=== PATIENT | female | born 1965 | race Caucasian/White ===

== ENCOUNTER 2020-11-10 17:47 | Inpatient (IN) | payer OTHER ==
[~2020-11-10] VITALS: Ht 167.6 cm; Wt 103.2 kg
--- NOTE | 2020-11-10 18:00 | NUR ---
PT BIB [facility]. PT TRANSFERRED FROM [facility] FOR POSSIBLE SARCOMA IN RIGHT UPPER LEG. SWELLING NOTED TO RIGHT THIGH, PT STATED THAT IT IS VEY PAINFUL. PT RECEIVED 2MG DILUADID AND 12.5MG PHENERGAN IN FLIGHT. PTS BS WAS 59 UPON [place], 1 AMP D50 GIVEN BY FLIGHT CREW.
--- NOTE | 2020-11-10 18:15 | NUR ---
PT'S FSBG 101.
[2020-11-10] MEDS ORDERED: HYDROmorphone 1 MG/ML, 1ML INJ ONE (19:23)
[2020-11-10] MEDS ORDERED: PLEASE ENTER ALLERGIES MC SCH (19:30)
[2020-11-10] MEDS ORDERED: HYDROmorphone 1 MG/ML, 1ML INJ IV ONE (19:30)
--- NOTE | 2020-11-10 19:46 | NUR ---
PT TO X RAY
[2020-11-10 19:49] LABS: INTERNATIONAL NORMALIZED RATIO 1.26 (0.93-1.1); PROTHROMBIN TIME 13.4 Seconds (9.6-11.5)
--- NOTE | 2020-11-10 20:49 | NUR ---
REPORT GIVEN TO ANISH BOLANOS.
[2020-11-10 21:14] VITALS: BP 111/73
[2020-11-10] MEDS ORDERED: LIDODERM 5% PATCH TD PRN (22:00)
[2020-11-10] MEDS: morphine SULFATE 10 MG/ML, 1ML IVPush PRN (22:40)
[2020-11-10 23:00] LABS: MEAN CORPUSCULAR HEMOGLOBIN 23.1 pg (27.0-34.8); MEAN CORPUSCULAR HGB CONC 32.1 g/dL (32.4-35.8); MEAN PLATELET VOLUME 7.2 fL (7.4-10.4); PLATELET COUNT 810 x10^3/uL (130-400); RED BLOOD COUNT 3.73 x10^6/uL (3.82-5.3)
[2020-11-10 23:11] LABS: ANION GAP 11 mmol/L (5-15); CALCIUM 7.9 mg/dL (8.5-10.1); CHLORIDE 100 mmol/L (98-107); CREATININE 0.53 mg/dL (0.55-1.02)
[2020-11-10 23:31] LABS: BAND#(MANUAL) 0.53 x10^3/uL; BANDS%(MANUAL) 5 % (0-7); EOS#(MANUAL) 0.21 x10^3/uL (0.0-0.4); EOS% (MANUAL) 2 % (1-7); HYPOCHROMIA 1+; LYMPH#(MANUAL) 1.79 x10^3/uL (1-3.4); LYMPHS% (MANUAL) 17 % (22-44); MONOS#(MANUAL) 0.74 x10^3/uL (0.3-2.7); MONOS% (MANUAL) 7 % (2-9); POLYCHROMASIA 1+; SEG#(MANUAL) 7.25 x10^3/uL (1.8-6.8); SEGS% (MANUAL) 69 % (42-75)
[2020-11-10 23:34] LABS: <PLATELET ESTIMATE> INCREASED; SMALL PLATELETS 1+; TOXIC GRAN 1+
[2020-11-10] MEDS: AMPICILLIN/SULBACTAM 3 GM in SODIUM CHLORIDE 0.9% 100 ML IV SCH (23:39)
[2020-11-10] MEDS: ACETAMINOPHEN 325 MG TABLET PO PRN (23:39)
[2020-11-10] MEDS: LACTATED RINGERS 1,000 ML IV SCH (23:40)
[2020-11-11 00:06] VITALS: BP 108/61
[2020-11-11] MEDS: TEMAZEPAM 15 MG CAPSULE PO PRN (00:21)
[2020-11-11] MEDS: morphine SULFATE 10 MG/ML, 1ML IVPush PRN ×6 (01:50→22:05)
[2020-11-11] MEDS: ONDANSETRON 2MG/ML, 2ML IVPush PRN (01:50)
[2020-11-11] MEDS ORDERED: GLYB5TAB3 PO (01:56)
[2020-11-11] MEDS ORDERED: ALLO300T PO (02:33)
[2020-11-11] MEDS ORDERED: AMOX1TAB64 PO (02:34)
[2020-11-11] MEDS ORDERED: IBUP-1223 PO (02:36)
[2020-11-11] MEDS ORDERED: BISO10TA PO (02:36)
[2020-11-11] MEDS ORDERED: LISI40TA9 PO (02:41)
[2020-11-11] MEDS ORDERED: LEVO200C2 PO (02:41)
[2020-11-11] MEDS ORDERED: METF10007 PO (02:41)
[2020-11-11] MEDS ORDERED: LOVA40TA2 PO (02:41)
[2020-11-11] MEDS ORDERED: OXYC10TA72 PO (02:41)
[2020-11-11] MEDS ORDERED: ONDA4TAB7 PO (02:41)
[2020-11-11] MEDS ORDERED: DEXTROSE 50%, 50ML SYRINGE IVPush PRN (05:00)
[2020-11-11] MEDS ORDERED: DEXTROSE 4 GM TAB.CHEW PO PRN (05:00)
[2020-11-11] MEDS ORDERED: GLUCAGON 1 MG IM PRN (05:00)
[2020-11-11] MEDS: AMPICILLIN/SULBACTAM 3 GM in SODIUM CHLORIDE 0.9% 100 ML IV SCH ×3 (05:01→17:56)
[2020-11-11 05:23] LABS: MEAN CORPUSCULAR HEMOGLOBIN 23.2 pg (27.0-34.8); MEAN CORPUSCULAR HGB CONC 32.2 g/dL (32.4-35.8); MEAN PLATELET VOLUME 7.2 fL (7.4-10.4); PLATELET COUNT 786 x10^3/uL (130-400); RED CELL DISTRIBUTION WIDTH 18.8 % (9.6-15.2)
[2020-11-11 05:35] LABS: ANION GAP 8 mmol/L (5-15); CALCIUM 7.8 mg/dL (8.5-10.1); CHLORIDE 103 mmol/L (98-107)
[2020-11-11 05:46] LABS: % IRON SATURATION 7 % (20-55); CREATININE 0.53 mg/dL (0.55-1.02); IRON LEVEL 12 mcg/dL (50-170); TOTAL IRON BINDING CAPACITY 172 mcg/dL (250-450)
[2020-11-11 06:02] LABS: BAND#(MANUAL) 0.38 x10^3/uL; BANDS%(MANUAL) 4 % (0-7); EOS#(MANUAL) 0.19 x10^3/uL (0.0-0.4); EOS% (MANUAL) 2 % (1-7); LYMPHS% (MANUAL) 21 % (22-44); METAMYELOCYTES# (MANUAL) 0.29 x10^3/uL (0-0); METAMYELOCYTES% (MANUAL) 3 % (0-1); MONOS#(MANUAL) 0.86 x10^3/uL (0.3-2.7); MONOS% (MANUAL) 9 % (2-9); SEGS% (MANUAL) 61 % (42-75)
[2020-11-11 06:04] LABS: POLYCHROMASIA 1+
[2020-11-11 06:05] LABS: ANISOCYTOSIS 1+
[2020-11-11 06:06] LABS: <PLATELET ESTIMATE> INCREASED; <PLT MORPHOLOGY> NORMAL PLT MORPH; HYPOCHROMIA 2+; MICROCYTOSIS 1+
[2020-11-11 06:07] LABS: TOXIC GRAN 1+
[2020-11-11 06:08] LABS: TARGET CELLS 1+
[2020-11-11 06:18] LABS: PMNS WITH VACUOLES 1+
[2020-11-11] MEDS: SODIUM CHLORIDE FLUSH 10ML SYR IVF SCH ×2 (07:29→20:39)
[2020-11-11] MEDS: LACTATED RINGERS 1,000 ML IV SCH (08:10)
[2020-11-11] MEDS ORDERED: POTASSIUM CHLORIDE 40 MEQ in LACTATED RINGERS 1,000 ML IV SCH (09:00)
[2020-11-11 09:05] VITALS: BP 123/79
[2020-11-11 09:29] VITALS: BP 128/80
[2020-11-11] MEDS ORDERED: CHLORHEXIDINE 15 ML UDC PO ONE (10:30)
[2020-11-11] MEDS ORDERED: FENTANYL PF 250 MCG/5ML ONE (10:31)
[2020-11-11] MEDS ORDERED: hydrALAzine 20 MG/ML, 1ML IV PRN (12:00)
[2020-11-11] MEDS ORDERED: METHOCARBAMOL 1,000 MG in DEXTROSE 5% 100 ML IV PRN (12:00)
[2020-11-11] MEDS ORDERED: LABETALOL 5MG/ML, 20ML IV PRN (12:00)
[2020-11-11] MEDS ORDERED: EPHEDRINE 50 MG/ML, 1ML IVPush PRN (12:00)
[2020-11-11] MEDS ORDERED: LORazepam 2 MG/ML, 1ML IVPush PRN (12:00)
[2020-11-11] MEDS ORDERED: ACETAMINOPHEN 325 MG TABLET PO PRN (12:00)
[2020-11-11] MEDS ORDERED: ONDANSETRON 2MG/ML, 2ML IVPush PRN (12:00)
[2020-11-11] MEDS ORDERED: PROMETHAZINE 25 MG/ML, 1ML IVPush PRN (12:00)
[2020-11-11] MEDS ORDERED: MEPERIDINE/PF 25MG/0.5ML IVPush PRN (12:00)
[2020-11-11] MEDS ORDERED: HYDROmorphone 1 MG/ML, 1ML INJ IVPush PRN (12:00)
[2020-11-11] MEDS ORDERED: OXYcodone 5 MG/5 ML ORAL.SOL UDC PO PRN (12:00)
[2020-11-11] MEDS ORDERED: ONDANSETRON 2MG/ML, 2ML ONE (12:15)
[2020-11-11] MEDS ORDERED: CEFAZOLIN 1,000 MG ONE (12:15)
[2020-11-11] MEDS ORDERED: PROPOFOL 10 MG/ML, 20ML ONE (12:15)
[2020-11-11] MEDS ORDERED: MIDAZOLAM 1 MG/ML, 2ML ONE (12:44)
[2020-11-11] MEDS ORDERED: OXYcodone 5 MG/5 ML ORAL.SOL UDC ONE (13:26)
[2020-11-11] MEDS ORDERED: FENTANYL PF 100 MCG/2ML ONE ×3 (13:26→13:57)
[2020-11-11] MEDS: FENTANYL PF 100 MCG/2ML IV PRN ×5 (13:28→13:59)
[2020-11-11] MEDS ORDERED: HYDROmorphone 1 MG/ML, 1ML INJ ONE (13:58)
[2020-11-11] MEDS ORDERED: VANCOMYCIN PER PHARMACY MC PRN (14:00)
[2020-11-11] MEDS ORDERED: PHARMACOKINETIC MONITORING MC PRN (14:30)
[2020-11-11] MEDS ORDERED: VANCOMYCIN 2,500 MG in SODIUM CHLORIDE 0.9% 500 ML IV ONE (15:00)
[2020-11-11] MEDS: HYDROcodone/APAP 5/325 TABLET PO PRN (17:06)
[2020-11-11 18:35] VITALS: BP 100/64
[2020-11-12] VITALS (13 sets, daily range): BP systolic 99–145; BP diastolic 57–80
[2020-11-12] MEDS: AMPICILLIN/SULBACTAM 3 GM in SODIUM CHLORIDE 0.9% 100 ML IV SCH ×5 (00:07→20:23)
[2020-11-12] MEDS: morphine SULFATE 10 MG/ML, 1ML IVPush PRN ×6 (01:21→21:13)
[2020-11-12] MEDS: VANCOMYCIN 2,000 MG in SODIUM CHLORIDE 0.9% 500 ML IV SCH ×2 (03:20→16:46)
[2020-11-12 05:41] LABS: ANION GAP 8 mmol/L (5-15); CALCIUM 7.7 mg/dL (8.5-10.1); CHLORIDE 103 mmol/L (98-107); CREATININE 0.49 mg/dL (0.55-1.02)
[2020-11-12 05:42] LABS: MEAN CORPUSCULAR HEMOGLOBIN 23.6 pg (27.0-34.8); MEAN CORPUSCULAR HGB CONC 32.5 g/dL (32.4-35.8); MEAN PLATELET VOLUME 7.5 fL (7.4-10.4); PLATELET COUNT 629 x10^3/uL (130-400); RED BLOOD COUNT 2.71 x10^6/uL (3.82-5.3); RED CELL DISTRIBUTION WIDTH 18.5 % (9.6-15.2)
[2020-11-12 06:16] LABS: ANISOCYTOSIS 1+; BAND#(MANUAL) 0.55 x10^3/uL; BANDS%(MANUAL) 5 % (0-7); EOS#(MANUAL) 0.22 x10^3/uL (0.0-0.4); EOS% (MANUAL) 2 % (1-7); HYPOCHROMIA 1+; LYMPH#(MANUAL) 1.53 x10^3/uL (1-3.4); LYMPHS% (MANUAL) 14 % (22-44); METAMYELOCYTES# (MANUAL) 0.11 x10^3/uL (0-0); METAMYELOCYTES% (MANUAL) 1 % (0-1); MICROCYTOSIS 1+; MONOS#(MANUAL) 0.55 x10^3/uL (0.3-2.7); MONOS% (MANUAL) 5 % (2-9); MYELOCYTES# (MANUAL) 0.33 x10^3/uL (0-0); MYELOCYTES% (MANUAL) 3 % (0-0); POLYCHROMASIA 1+; SEG#(MANUAL) 7.63 x10^3/uL (1.8-6.8); SEGS% (MANUAL) 70 % (42-75)
[2020-11-12 06:17] LABS: <PLATELET ESTIMATE> INCREASED; <PLT MORPHOLOGY> NORMAL PLT MORPH; OVALOCYTES 1+; PMNS WITH VACUOLES 1+; TARGET CELLS 1+; TOXIC GRAN 1+
[2020-11-12 06:18] LABS: SMUDGE CELLS 1+
[2020-11-12] MEDS: HYDROcodone/APAP 5/325 TABLET PO PRN ×3 (06:25→19:36)
[2020-11-12] MEDS: SODIUM CHLORIDE FLUSH 10ML SYR IVF SCH ×2 (07:11→21:08)
[2020-11-12] MEDS ORDERED: DOCUSATE 100 MG CAPSULE ONE (16:59)
[2020-11-12] MEDS ORDERED: DOCUSATE 50 MG/5 ML, 10ML UDC PO PRN (17:00)
[2020-11-12] MEDS ORDERED: POLYETHYLENE GLYCOL 17 GM PACKET PO PRN (17:00)
[2020-11-12] MEDS: DOCUSATE 100 MG CAPSULE PO PRN (17:01)
[2020-11-12] MEDS: MAGNESIUM SULFATE PMX 4GM/100M 100 ML IVPB ONE ×2 (20:15→21:08)
[2020-11-12] MEDS: INSULIN LISPRO 100 UNITS/ML, PEN SQ-INSULIN SCH (21:58)
[2020-11-12] MEDS: TEMAZEPAM 15 MG CAPSULE PO PRN (22:02)
[2020-11-13] MEDS: morphine SULFATE 10 MG/ML, 1ML IVPush PRN ×3 (00:59→16:58)
[2020-11-13] MEDS: AMPICILLIN/SULBACTAM 3 GM in SODIUM CHLORIDE 0.9% 100 ML IV SCH ×4 (01:55→22:13)
[2020-11-13 01:59] VITALS: BP 119/79
[2020-11-13] MEDS: VANCOMYCIN 2,000 MG in SODIUM CHLORIDE 0.9% 500 ML IV SCH (03:33)
[2020-11-13 04:46] LABS: MEAN CORPUSCULAR HEMOGLOBIN 24.5 pg (27.0-34.8); MEAN CORPUSCULAR HGB CONC 32.5 g/dL (32.4-35.8); MEAN PLATELET VOLUME 7.3 fL (7.4-10.4); PLATELET COUNT 644 x10^3/uL (130-400); RED BLOOD COUNT 3.48 x10^6/uL (3.82-5.3); RED CELL DISTRIBUTION WIDTH 19.8 % (9.6-15.2)
[2020-11-13 04:57] LABS: ANION GAP 8 mmol/L (5-15); CALCIUM 7.8 mg/dL (8.5-10.1); CHLORIDE 101 mmol/L (98-107); CREATININE 0.36 mg/dL (0.55-1.02)
[2020-11-13] MEDS: LEVOTHYROXINE 200 MCG TABLET PO SCH (05:21)
[2020-11-13 05:42] LABS: ANISOCYTOSIS 1+; BAND#(MANUAL) 0.77 x10^3/uL; BANDS%(MANUAL) 7 % (0-7); EOS#(MANUAL) 0.22 x10^3/uL (0.0-0.4); EOS% (MANUAL) 2 % (1-7); HYPOCHROMIA 1+; LYMPH#(MANUAL) 1.65 x10^3/uL (1-3.4); LYMPHS% (MANUAL) 15 % (22-44); METAMYELOCYTES# (MANUAL) 0.77 x10^3/uL (0-0); METAMYELOCYTES% (MANUAL) 7 % (0-1); MICROCYTOSIS 1+; MONOS#(MANUAL) 0.66 x10^3/uL (0.3-2.7); MONOS% (MANUAL) 6 % (2-9); MYELOCYTES# (MANUAL) 0.33 x10^3/uL (0-0); MYELOCYTES% (MANUAL) 3 % (0-0); POLYCHROMASIA 1+; SEGS% (MANUAL) 60 % (42-75)
[2020-11-13 05:43] LABS: <PLATELET ESTIMATE> INCREASED; <PLT MORPHOLOGY> NORMAL PLT MORPH; TOXIC GRAN 1+
[2020-11-13 06:39] VITALS: BP 122/79
[2020-11-13] MEDS: INSULIN LISPRO 100 UNITS/ML, PEN SQ-INSULIN SCH ×4 (07:00→21:09)
[2020-11-13] MEDS ORDERED: MIDAZOLAM 1 MG/ML, 2ML ONE (07:15)
[2020-11-13] MEDS ORDERED: FENTANYL PF 100 MCG/2ML ONE ×2 (07:15→08:02)
[2020-11-13] MEDS: SODIUM CHLORIDE FLUSH 10ML SYR IVF SCH ×2 (07:16→19:53)
[2020-11-13] MEDS ORDERED: PROPOFOL 10 MG/ML, 20ML ONE (07:18)
[2020-11-13] MEDS ORDERED: DEXAMETHASONE 4 MG/ML, 1ML ONE (07:18)
[2020-11-13] MEDS ORDERED: SUCCINYLCHOLINE 20 MG/ML, 10ML ONE (07:18)
[2020-11-13] MEDS ORDERED: ONDANSETRON 2MG/ML, 2ML ONE (07:18)
[2020-11-13] MEDS ORDERED: PROMETHAZINE 25 MG/ML, 1ML IVPush PRN (07:30)
[2020-11-13] MEDS ORDERED: ACETAMINOPHEN 325 MG TABLET PO PRN (07:30)
[2020-11-13] MEDS ORDERED: LABETALOL 5MG/ML, 20ML IV PRN (07:30)
[2020-11-13] MEDS ORDERED: FENTANYL PF 100 MCG/2ML IV PRN (07:30)
[2020-11-13] MEDS ORDERED: EPHEDRINE 50 MG/ML, 1ML IVPush PRN (07:30)
[2020-11-13] MEDS ORDERED: ONDANSETRON 2MG/ML, 2ML IVPush PRN (07:30)
[2020-11-13] MEDS ORDERED: hydrALAzine 20 MG/ML, 1ML IV PRN (07:30)
[2020-11-13] MEDS ORDERED: HYDROmorphone 1 MG/ML, 1ML INJ IVPush PRN (07:30)
[2020-11-13] MEDS ORDERED: OXYcodone 5 MG/5 ML ORAL.SOL UDC PO PRN (07:30)
[2020-11-13] MEDS ORDERED: KETOROLAC 30 MG/1 ML ONE (07:30)
[2020-11-13] MEDS ORDERED: HYDROmorphone 1 MG/ML, 1ML INJ ONE (07:40)
[2020-11-13] MEDS ORDERED: LIDOCAINE-MPF 2% ,5ML ONE (07:43)
[2020-11-13] MEDS ORDERED: OXYcodone 5 MG/5 ML ORAL.SOL UDC ONE (08:02)
[2020-11-13] MEDS ORDERED: SODIUM PHOSPHATE 20 MMOL in SODIUM CHLORIDE 0.9% 500 ML IV ONE (10:00)
[2020-11-13] MEDS ORDERED: MAGNESIUM SULFATE PMX 2GM/50ML 50 ML IV ONE (10:00)
[2020-11-13 12:05] VITALS: BP 128/91
[2020-11-13] MEDS: HYDROcodone/APAP 5/325 TABLET PO PRN ×2 (13:32→19:40)
[2020-11-13 19:38] VITALS: BP 120/75
[2020-11-13] MEDS: TEMAZEPAM 15 MG CAPSULE PO PRN (22:13)
[2020-11-14 00:08] VITALS: BP 121/72
[2020-11-14] MEDS: morphine SULFATE 10 MG/ML, 1ML IVPush PRN ×5 (00:18→20:40)
[2020-11-14] MEDS: AMPICILLIN/SULBACTAM 3 GM in SODIUM CHLORIDE 0.9% 100 ML IV SCH ×4 (03:51→21:29)
[2020-11-14 05:15] LABS: MEAN CORPUSCULAR HEMOGLOBIN 24.8 pg (27.0-34.8); MEAN CORPUSCULAR HGB CONC 32.9 g/dL (32.4-35.8); MEAN PLATELET VOLUME 7.9 fL (7.4-10.4); PLATELET COUNT 705 x10^3/uL (130-400); RED BLOOD COUNT 3.19 x10^6/uL (3.82-5.3); RED CELL DISTRIBUTION WIDTH 20.2 % (9.6-15.2)
[2020-11-14 05:27] LABS: CHLORIDE 100 mmol/L (98-107)
[2020-11-14 05:32] LABS: ANION GAP 8 mmol/L (5-15); CALCIUM 7.9 mg/dL (8.5-10.1); CREATININE 0.47 mg/dL (0.55-1.02)
[2020-11-14 05:50] LABS: ANISOCYTOSIS 1+; BAND#(MANUAL) 0.95 x10^3/uL; BANDS%(MANUAL) 9 % (0-7); HYPOCHROMIA 1+; LYMPHS% (MANUAL) 16 % (22-44); METAMYELOCYTES# (MANUAL) 0.32 x10^3/uL (0-0); METAMYELOCYTES% (MANUAL) 3 % (0-1); MICROCYTOSIS 1+; MONOS#(MANUAL) 0.74 x10^3/uL (0.3-2.7); MONOS% (MANUAL) 7 % (2-9); MYELOCYTES# (MANUAL) 0.11 x10^3/uL (0-0); MYELOCYTES% (MANUAL) 1 % (0-0); SEG#(MANUAL) 6.78 x10^3/uL (1.8-6.8); SEGS% (MANUAL) 64 % (42-75); TARGET CELLS 1+
[2020-11-14 05:51] LABS: <PLATELET ESTIMATE> INCREASED; <PLT MORPHOLOGY> NORMAL PLT MORPH; POLYCHROMASIA 1+; TOXIC GRAN 1+
[2020-11-14] MEDS: LEVOTHYROXINE 200 MCG TABLET PO SCH (05:55)
[2020-11-14] MEDS ORDERED: VANCOMYCIN 2,000 MG in SODIUM CHLORIDE 0.9% 500 ML IV SCH (06:00)
[2020-11-14 07:09] VITALS: BP 117/71
[2020-11-14] MEDS: HYDROcodone/APAP 5/325 TABLET PO PRN ×2 (07:47→15:32)
[2020-11-14] MEDS: SODIUM CHLORIDE FLUSH 10ML SYR IVF SCH ×2 (07:48→21:29)
[2020-11-14] MEDS: INSULIN LISPRO 100 UNITS/ML, PEN SQ-INSULIN SCH ×4 (07:48→21:29)
[2020-11-14 13:10] VITALS: BP 113/73
[2020-11-14] MEDS ORDERED: MORPHINE SULFATE 4 MG/ML, 1ML ONE (14:01)
[2020-11-14 19:20] VITALS: BP 117/67
[2020-11-14] MEDS: TEMAZEPAM 15 MG CAPSULE PO PRN (21:39)
[2020-11-15 00:48] VITALS: BP 132/81
[2020-11-15] MEDS: HYDROcodone/APAP 5/325 TABLET PO PRN ×3 (00:56→18:40)
[2020-11-15] MEDS: AMPICILLIN/SULBACTAM 3 GM in SODIUM CHLORIDE 0.9% 100 ML IV SCH ×4 (04:08→23:33)
[2020-11-15] MEDS: LEVOTHYROXINE 200 MCG TABLET PO SCH (05:09)
[2020-11-15 05:38] LABS: MEAN CORPUSCULAR HEMOGLOBIN 24.5 pg (27.0-34.8); MEAN CORPUSCULAR HGB CONC 32.2 g/dL (32.4-35.8); MEAN PLATELET VOLUME 7.4 fL (7.4-10.4); PLATELET COUNT 956 x10^3/uL (130-400); RED BLOOD COUNT 3.33 x10^6/uL (3.82-5.3); RED CELL DISTRIBUTION WIDTH 20.6 % (9.6-15.2)
[2020-11-15 05:47] LABS: CHLORIDE 104 mmol/L (98-107)
[2020-11-15 06:02] LABS: ALANINE AMINOTRANSFERASE 29 U/L (12-78); ALBUMIN 1.5 g/dL (3.4-5.0); ALKALINE PHOSPHATASE 136 U/L (45-117); ANION GAP 7 mmol/L (5-15); BILIRUBIN,TOTAL 0.2 mg/dL (0.2-1.0); CALCIUM 7.9 mg/dL (8.5-10.1); CREATININE 0.42 mg/dL (0.55-1.02); TOTAL PROTEIN 5.3 g/dL (6.4-8.2)
[2020-11-15 06:10] LABS: BAND#(MANUAL) 1.28 x10^3/uL; BANDS%(MANUAL) 8 % (0-7); EOS#(MANUAL) 0.48 x10^3/uL (0.0-0.4); EOS% (MANUAL) 3 % (1-7); LYMPHS% (MANUAL) 20 % (22-44); METAMYELOCYTES% (MANUAL) 10 % (0-1); MONOS#(MANUAL) 0.96 x10^3/uL (0.3-2.7); MONOS% (MANUAL) 6 % (2-9); MYELOCYTES% (MANUAL) 5 % (0-0); SEG#(MANUAL) 7.68 x10^3/uL (1.8-6.8); SEGS% (MANUAL) 48 % (42-75)
[2020-11-15 06:11] LABS: ANISOCYTOSIS 1+; MICROCYTOSIS 1+
[2020-11-15 06:12] LABS: <PLATELET ESTIMATE> INCREASED; <PLT MORPHOLOGY> NORMAL PLT MORPH; HYPOCHROMIA 1+; POLYCHROMASIA 1+; TARGET CELLS 1+
[2020-11-15 06:17] LABS: TOXIC GRAN 1+
[2020-11-15 06:54] VITALS: BP 134/78
[2020-11-15] MEDS: INSULIN LISPRO 100 UNITS/ML, PEN SQ-INSULIN SCH ×4 (07:00→20:14)
[2020-11-15] MEDS: SODIUM CHLORIDE FLUSH 10ML SYR IVF SCH ×2 (07:12→20:14)
[2020-11-15] MEDS: morphine SULFATE 10 MG/ML, 1ML IVPush PRN ×5 (07:57→23:43)
[2020-11-15 13:36] VITALS: BP 134/80
[2020-11-15 19:05] VITALS: BP 132/85
[2020-11-15 21:15] VITALS: BP 128/79
[2020-11-15 23:40] VITALS: BP 131/73
[2020-11-16 00:39] VITALS: BP 133/83
[2020-11-16] MEDS: HYDROcodone/APAP 5/325 TABLET PO PRN ×2 (00:58→18:34)
[2020-11-16] MEDS: morphine SULFATE 10 MG/ML, 1ML IVPush PRN ×4 (02:42→21:27)
[2020-11-16] MEDS: AMPICILLIN/SULBACTAM 3 GM in SODIUM CHLORIDE 0.9% 100 ML IV SCH ×3 (05:21→18:21)
[2020-11-16] MEDS: LEVOTHYROXINE 200 MCG TABLET PO SCH (05:47)
[2020-11-16 06:10] VITALS: BP 139/82
[2020-11-16] MEDS ORDERED: MIDAZOLAM 1 MG/ML, 2ML ONE (06:58)
[2020-11-16] MEDS ORDERED: FENTANYL PF 250 MCG/5ML ONE ×2 (06:59→08:05)
[2020-11-16] MEDS: INSULIN LISPRO 100 UNITS/ML, PEN SQ-INSULIN SCH ×4 (07:00→22:20)
[2020-11-16] MEDS ORDERED: CHLORHEXIDINE 15 ML UDC PO ONE (07:00)
[2020-11-16] MEDS ORDERED: VANCOMYCIN 1,000 MG ONE (07:22)
[2020-11-16] MEDS ORDERED: ACETAMINOPHEN 325 MG TABLET PO PRN (07:30)
[2020-11-16] MEDS ORDERED: hydrALAzine 20 MG/ML, 1ML IV PRN (07:30)
[2020-11-16] MEDS ORDERED: HYDROmorphone 1 MG/ML, 1ML INJ IVPush PRN (07:30)
[2020-11-16] MEDS ORDERED: LABETALOL 5MG/ML, 20ML IV PRN (07:30)
[2020-11-16] MEDS ORDERED: PROMETHAZINE 25 MG/ML, 1ML IVPush PRN (07:30)
[2020-11-16] MEDS ORDERED: LORazepam 2 MG/ML, 1ML IVPush PRN (07:30)
[2020-11-16] MEDS ORDERED: ONDANSETRON 2MG/ML, 2ML IVPush PRN (07:30)
[2020-11-16] MEDS ORDERED: OXYcodone 5 MG/5 ML ORAL.SOL UDC PO PRN (07:30)
[2020-11-16] MEDS ORDERED: EPHEDRINE 50 MG/ML, 1ML IVPush PRN (07:30)
[2020-11-16] MEDS ORDERED: METHOCARBAMOL 1,000 MG in DEXTROSE 5% 100 ML IV PRN (07:30)
[2020-11-16] MEDS ORDERED: MEPERIDINE/PF 25MG/0.5ML IVPush PRN (07:30)
[2020-11-16] MEDS ORDERED: MEPERIDINE/PF 50 MG/ML ONE (07:58)
[2020-11-16] MEDS ORDERED: VANCOMYCIN 1,000 MG IM ONE (08:08)
[2020-11-16] MEDS: SODIUM CHLORIDE FLUSH 10ML SYR IVF SCH ×2 (08:33→22:21)
[2020-11-16] MEDS ORDERED: FENTANYL PF 100 MCG/2ML ONE ×2 (08:41→08:58)
[2020-11-16] MEDS: FENTANYL PF 100 MCG/2ML IV PRN ×4 (08:42→09:08)
[2020-11-16] MEDS ORDERED: OXYcodone 5 MG/5 ML ORAL.SOL UDC ONE (08:53)
[2020-11-16 09:45] VITALS: BP 120/79
[2020-11-16 12:59] VITALS: BP 122/78
[2020-11-16 19:07] VITALS: BP 111/69
[2020-11-16] MEDS ORDERED: INSULIN GLARGINE 100 UNITS/ML, PEN SQ-INSULIN SCH (21:00)
[2020-11-16] MEDS: TEMAZEPAM 15 MG CAPSULE PO PRN (22:20)
[2020-11-17] MEDS: AMPICILLIN/SULBACTAM 3 GM in SODIUM CHLORIDE 0.9% 100 ML IV SCH ×4 (00:13→17:47)
[2020-11-17 00:54] VITALS: BP 107/62
[2020-11-17 05:16] LABS: MEAN CORPUSCULAR HEMOGLOBIN 24.3 pg (27.0-34.8); MEAN CORPUSCULAR HGB CONC 31.6 g/dL (32.4-35.8); MEAN PLATELET VOLUME 7.4 fL (7.4-10.4); PLATELET COUNT 928 x10^3/uL (130-400); RED BLOOD COUNT 3.23 x10^6/uL (3.82-5.3); RED CELL DISTRIBUTION WIDTH 22.1 % (9.6-15.2)
[2020-11-17 05:24] LABS: ALBUMIN 1.5 g/dL (3.4-5.0); ANION GAP 7 mmol/L (5-15); CALCIUM 7.6 mg/dL (8.5-10.1); CHLORIDE 101 mmol/L (98-107)
[2020-11-17 05:38] LABS: ALANINE AMINOTRANSFERASE 14 U/L (12-78); ALKALINE PHOSPHATASE 99 U/L (45-117); BILIRUBIN,TOTAL 0.2 mg/dL (0.2-1.0); CREATININE 0.49 mg/dL (0.55-1.02); TOTAL PROTEIN 4.9 g/dL (6.4-8.2)
[2020-11-17 05:47] LABS: HCT (SEDRATE) 24.9 % (34.6-47.8)
[2020-11-17] MEDS: LEVOTHYROXINE 200 MCG TABLET PO SCH (05:54)
[2020-11-17] MEDS: morphine SULFATE 10 MG/ML, 1ML IVPush PRN ×2 (05:54→14:35)
[2020-11-17 06:02] LABS: ANISOCYTOSIS 1+; BANDS%(MANUAL) 4 % (0-7); EOS% (MANUAL) 2 % (1-7); HYPOCHROMIA 1+; LYMPH#(MANUAL) 2.85 x10^3/uL (1-3.4); LYMPHS% (MANUAL) 19 % (22-44); METAMYELOCYTES% (MANUAL) 2 % (0-1); MICROCYTOSIS 1+; MONOS#(MANUAL) 0.45 x10^3/uL (0.3-2.7); MONOS% (MANUAL) 3 % (2-9); POLYCHROMASIA 1+; SEGS% (MANUAL) 70 % (42-75); TOXIC GRAN 1+
[2020-11-17 06:03] LABS: TARGET CELLS 1+
[2020-11-17 06:04] LABS: <PLATELET ESTIMATE> INCREASED; <PLT MORPHOLOGY> NORMAL PLT MORPH
[2020-11-17 06:30] VITALS: BP 139/81
[2020-11-17] MEDS: INSULIN LISPRO 100 UNITS/ML, PEN SQ-INSULIN SCH ×4 (07:00→20:35)
[2020-11-17] MEDS ORDERED: POTASSIUM CHLORIDE 40 MEQ in SODIUM CHLORIDE 0.9% 500 ML IV ONE (07:30)
[2020-11-17] MEDS ORDERED: MAGNESIUM SULFATE PMX 4GM/100M 100 ML IVPB ONE (07:30)
[2020-11-17] MEDS: HYDROcodone/APAP 5/325 TABLET PO PRN (08:52)
[2020-11-17] MEDS: SODIUM CHLORIDE FLUSH 10ML SYR IVF SCH ×2 (09:08→20:28)
[2020-11-17] MEDS ORDERED: POTASSIUM CHLORIDE 20 MEQ TAB.ER.PRT PO ONE ×2 (10:00→13:00)
[2020-11-17 13:10] VITALS: BP 126/77
[2020-11-17 19:35] VITALS: BP 129/72
[2020-11-17] MEDS: OXYcodone IR 5MG TABLET PO PRN (20:28)
[2020-11-17] MEDS ORDERED: INSULIN GLARGINE 100 UNITS/ML, PEN SQ-INSULIN SCH (21:00)
[2020-11-17] MEDS: TEMAZEPAM 15 MG CAPSULE PO PRN (22:07)
[2020-11-18] MEDS: AMPICILLIN/SULBACTAM 3 GM in SODIUM CHLORIDE 0.9% 100 ML IV SCH ×4 (00:26→18:05)
[2020-11-18] MEDS: morphine SULFATE 10 MG/ML, 1ML IVPush PRN ×3 (00:26→12:50)
[2020-11-18 00:31] VITALS: BP 125/78
[2020-11-18 05:10] LABS: MEAN CORPUSCULAR HEMOGLOBIN 24.8 pg (27.0-34.8); MEAN CORPUSCULAR HGB CONC 32.1 g/dL (32.4-35.8); MEAN PLATELET VOLUME 7.2 fL (7.4-10.4); PLATELET COUNT 1000 x10^3/uL (130-400); RED BLOOD COUNT 3.28 x10^6/uL (3.82-5.3); RED CELL DISTRIBUTION WIDTH 22.3 % (9.6-15.2)
[2020-11-18] MEDS: LEVOTHYROXINE 200 MCG TABLET PO SCH (05:18)
[2020-11-18 05:22] LABS: CHLORIDE 103 mmol/L (98-107)
[2020-11-18] MEDS: ONDANSETRON 2MG/ML, 2ML IVPush PRN (05:34)
[2020-11-18 05:36] LABS: ANION GAP 5 mmol/L (5-15); CALCIUM 7.8 mg/dL (8.5-10.1)
[2020-11-18 05:41] LABS: ANISOCYTOSIS 1+; BAND#(MANUAL) 0.29 x10^3/uL; BANDS%(MANUAL) 2 % (0-7); EOS#(MANUAL) 0.29 x10^3/uL (0.0-0.4); EOS% (MANUAL) 2 % (1-7); HYPOCHROMIA 1+; LYMPH#(MANUAL) 3.72 x10^3/uL (1-3.4); LYMPHS% (MANUAL) 26 % (22-44); METAMYELOCYTES# (MANUAL) 0.14 x10^3/uL (0-0); METAMYELOCYTES% (MANUAL) 1 % (0-1); MICROCYTOSIS 1+; MONOS#(MANUAL) 0.57 x10^3/uL (0.3-2.7); MONOS% (MANUAL) 4 % (2-9); MYELOCYTES# (MANUAL) 0.29 x10^3/uL (0-0); MYELOCYTES% (MANUAL) 2 % (0-0); POLYCHROMASIA 1+; SEG#(MANUAL) 9.01 x10^3/uL (1.8-6.8); SEGS% (MANUAL) 63 % (42-75); TARGET CELLS 1+
[2020-11-18 05:42] LABS: <PLATELET ESTIMATE> INCREASED; <PLT MORPHOLOGY> NORMAL PLT MORPH
[2020-11-18 07:33] VITALS: BP 129/77
[2020-11-18] MEDS: SODIUM CHLORIDE FLUSH 10ML SYR IVF SCH ×2 (07:44→21:06)
[2020-11-18] MEDS: INSULIN LISPRO 100 UNITS/ML, PEN SQ-INSULIN SCH ×4 (07:44→21:07)
[2020-11-18] MEDS: OXYcodone IR 5MG TABLET PO PRN ×3 (09:34→18:05)
[2020-11-18 13:44] VITALS: BP 130/77
[2020-11-18 19:23] VITALS: BP 118/79
[2020-11-18] MEDS ORDERED: INSULIN GLARGINE 100 UNITS/ML, PEN SQ-INSULIN SCH (21:00)
[2020-11-18] MEDS: TEMAZEPAM 15 MG CAPSULE PO PRN (22:32)
[2020-11-19] MEDS: AMPICILLIN/SULBACTAM 3 GM in SODIUM CHLORIDE 0.9% 100 ML IV SCH ×4 (00:06→19:15)
[2020-11-19] MEDS: OXYcodone IR 5MG TABLET PO PRN ×5 (00:07→22:41)
[2020-11-19 00:15] VITALS: BP 115/70
[2020-11-19 05:12] LABS: BASOPHILS % (AUTO) 1 % (0-1); EOSINOPHILS % (AUTO) 4 % (1-7); LYMPHOCYTES % (AUTO) 27 % (22-44); MEAN CORPUSCULAR HEMOGLOBIN 25.2 pg (27.0-34.8); MEAN CORPUSCULAR HGB CONC 32.2 g/dL (32.4-35.8); MEAN PLATELET VOLUME 7.2 fL (7.4-10.4); MONOCYTES % (AUTO) 9 % (2-9); NEUTROPHILS % (AUTO) 60 % (42-75); PLATELET COUNT 945 x10^3/uL (130-400); RED BLOOD COUNT 3.05 x10^6/uL (3.82-5.3); RED CELL DISTRIBUTION WIDTH 22.8 % (9.6-15.2)
[2020-11-19 05:24] LABS: ANION GAP 7 mmol/L (5-15); CALCIUM 8.3 mg/dL (8.5-10.1); CHLORIDE 103 mmol/L (98-107); CREATININE 0.52 mg/dL (0.55-1.02)
[2020-11-19] MEDS: LEVOTHYROXINE 200 MCG TABLET PO SCH (05:53)
[2020-11-19 07:08] VITALS: BP 122/80
[2020-11-19] MEDS: INSULIN LISPRO 100 UNITS/ML, PEN SQ-INSULIN SCH ×4 (07:34→20:44)
[2020-11-19] MEDS: SODIUM CHLORIDE FLUSH 10ML SYR IVF SCH ×2 (09:00→20:43)
[2020-11-19] MEDS: INSULIN GLARGINE 100 UNITS/ML, PEN SQ-INSULIN SCH (09:01)
[2020-11-19] MEDS: ONDANSETRON 2MG/ML, 2ML IVPush PRN (11:36)
[2020-11-19] MEDS: morphine SULFATE 10 MG/ML, 1ML IVPush PRN ×2 (12:29→20:32)
[2020-11-19 12:50] VITALS: BP 112/69
[2020-11-19 18:57] VITALS: BP 125/79
[2020-11-19] MEDS ORDERED: INSULIN GLARGINE 100 UNITS/ML, PEN SQ-INSULIN SCH (21:00)
[2020-11-20 00:01] VITALS: BP 126/80
[2020-11-20] MEDS: TEMAZEPAM 15 MG CAPSULE PO PRN ×2 (00:05→23:54)
[2020-11-20] MEDS: AMPICILLIN/SULBACTAM 3 GM in SODIUM CHLORIDE 0.9% 100 ML IV SCH ×5 (00:05→23:54)
[2020-11-20] MEDS: morphine SULFATE 10 MG/ML, 1ML IVPush PRN ×3 (04:57→20:39)
[2020-11-20 05:02] LABS: MEAN CORPUSCULAR HEMOGLOBIN 24.7 pg (27.0-34.8); MEAN CORPUSCULAR HGB CONC 31.6 g/dL (32.4-35.8); PLATELET COUNT 810 x10^3/uL (130-400); RED BLOOD COUNT 3.08 x10^6/uL (3.82-5.3); RED CELL DISTRIBUTION WIDTH 23.6 % (9.6-15.2)
[2020-11-20] MEDS: LEVOTHYROXINE 200 MCG TABLET PO SCH (06:05)
[2020-11-20 06:41] LABS: ANISOCYTOSIS 1+; BAND#(MANUAL) 0.12 x10^3/uL; BANDS%(MANUAL) 1 % (0-7); EOS#(MANUAL) 0.61 x10^3/uL (0.0-0.4); EOS% (MANUAL) 5 % (1-7); HYPOCHROMIA 1+; LYMPH#(MANUAL) 2.32 x10^3/uL (1-3.4); LYMPHS% (MANUAL) 19 % (22-44); METAMYELOCYTES# (MANUAL) 0.24 x10^3/uL (0-0); METAMYELOCYTES% (MANUAL) 2 % (0-1); MICROCYTOSIS 1+; MONOS#(MANUAL) 0.85 x10^3/uL (0.3-2.7); MONOS% (MANUAL) 7 % (2-9); POLYCHROMASIA 1+; SEG#(MANUAL) 8.05 x10^3/uL (1.8-6.8); SEGS% (MANUAL) 66 % (42-75); TARGET CELLS 1+
[2020-11-20 06:42] LABS: <PLATELET ESTIMATE> INCREASED; <PLT MORPHOLOGY> NORMAL PLT MORPH
[2020-11-20 06:48] VITALS: BP 118/78
[2020-11-20] MEDS: SODIUM CHLORIDE FLUSH 10ML SYR IVF SCH ×2 (07:32→20:38)
[2020-11-20] MEDS: INSULIN LISPRO 100 UNITS/ML, PEN SQ-INSULIN SCH ×4 (07:32→20:54)
[2020-11-20] MEDS: INSULIN GLARGINE 100 UNITS/ML, PEN SQ-INSULIN SCH ×2 (07:33→11:45)
[2020-11-20] MEDS: OXYcodone IR 5MG TABLET PO PRN (09:29)
[2020-11-20 14:40] VITALS: BP 118/76
[2020-11-20 20:42] VITALS: BP 112/75
[2020-11-20] MEDS ORDERED: INSULIN GLARGINE 100 UNITS/ML, PEN SQ-INSULIN SCH (21:00)
[2020-11-21] MEDS: OXYcodone IR 5MG TABLET PO PRN ×4 (01:20→23:53)
[2020-11-21 01:21] VITALS: BP 116/78
[2020-11-21 04:43] LABS: MEAN PLATELET VOLUME 7.2 fL (7.4-10.4); PLATELET COUNT 668 x10^3/uL (130-400); RED BLOOD COUNT 3.01 x10^6/uL (3.82-5.3); RED CELL DISTRIBUTION WIDTH 24.1 % (9.6-15.2)
[2020-11-21 05:34] LABS: BAND#(MANUAL) 0.12 x10^3/uL; BANDS%(MANUAL) 1 % (0-7); EOS#(MANUAL) 0.35 x10^3/uL (0.0-0.4); EOS% (MANUAL) 3 % (1-7); LYMPH#(MANUAL) 2.83 x10^3/uL (1-3.4); LYMPHS% (MANUAL) 24 % (22-44); METAMYELOCYTES# (MANUAL) 0.24 x10^3/uL (0-0); METAMYELOCYTES% (MANUAL) 2 % (0-1); MONOS#(MANUAL) 0.71 x10^3/uL (0.3-2.7); MONOS% (MANUAL) 6 % (2-9); MYELOCYTES# (MANUAL) 0.12 x10^3/uL (0-0); MYELOCYTES% (MANUAL) 1 % (0-0); SEG#(MANUAL) 7.43 x10^3/uL (1.8-6.8); SEGS% (MANUAL) 63 % (42-75)
[2020-11-21 05:35] LABS: ANISOCYTOSIS 1+; HYPOCHROMIA 1+; MICROCYTOSIS 1+; POLYCHROMASIA 1+
[2020-11-21 05:36] LABS: TARGET CELLS 1+
[2020-11-21 05:37] LABS: <PLATELET ESTIMATE> INCREASED; <PLT MORPHOLOGY> NORMAL PLT MORPH
[2020-11-21] MEDS: AMPICILLIN/SULBACTAM 3 GM in SODIUM CHLORIDE 0.9% 100 ML IV SCH ×4 (05:56→23:49)
[2020-11-21] MEDS: LEVOTHYROXINE 200 MCG TABLET PO SCH (05:56)
[2020-11-21 07:25] VITALS: BP 120/78
[2020-11-21] MEDS: INSULIN GLARGINE 100 UNITS/ML, PEN SQ-INSULIN SCH ×2 (07:59→20:42)
[2020-11-21] MEDS: INSULIN LISPRO 100 UNITS/ML, PEN SQ-INSULIN SCH ×4 (08:00→20:42)
[2020-11-21] MEDS: SODIUM CHLORIDE FLUSH 10ML SYR IVF SCH ×2 (08:00→20:45)
[2020-11-21] MEDS ORDERED: INSULIN GLARGINE 100 UNITS/ML, PEN SQ-INSULIN SCH (09:00)
[2020-11-21] MEDS: DOCUSATE 100 MG CAPSULE PO PRN (10:12)
[2020-11-21 11:32] LABS: HCT (SEDRATE) 24.4 % (34.6-47.8)
[2020-11-21 12:36] VITALS: BP 119/76
[2020-11-21] MEDS: morphine SULFATE 10 MG/ML, 1ML IVPush PRN ×2 (13:19→20:41)
[2020-11-21 20:00] VITALS: BP 144/81
[2020-11-21] MEDS ORDERED: POLY17PO5 PO (22:21)
[2020-11-21] MEDS ORDERED: ACET325T26 PO (22:21)
[2020-11-21] MEDS ORDERED: INSU100I13 SQ-INSULIN ×2 (22:21)
[2020-11-21] MEDS ORDERED: AMPI3VIA IV (22:21)
[2020-11-21] MEDS ORDERED: OXYC10TA72 PO (22:21)
[2020-11-21] MEDS ORDERED: ONDA4TAB7 PO (22:21)
[2020-11-21] MEDS ORDERED: INSU100I11 SQ-INSULIN (22:21)
[2020-11-21] MEDS ORDERED: DOCU-131 PO (22:21)
[2020-11-22 00:34] VITALS: BP 141/81
[2020-11-22] MEDS: LEVOTHYROXINE 200 MCG TABLET PO SCH (06:07)
[2020-11-22] MEDS: AMPICILLIN/SULBACTAM 3 GM in SODIUM CHLORIDE 0.9% 100 ML IV SCH ×4 (06:07→23:58)
[2020-11-22] MEDS: OXYcodone IR 5MG TABLET PO PRN ×4 (06:08→22:38)
[2020-11-22 06:33] LABS: BASOPHILS % (AUTO) 1 % (0-1); EOSINOPHILS % (AUTO) 4 % (1-7); LYMPHOCYTES % (AUTO) 23 % (22-44); MEAN CORPUSCULAR HEMOGLOBIN 25.2 pg (27.0-34.8); MEAN CORPUSCULAR HGB CONC 31.9 g/dL (32.4-35.8); MONOCYTES % (AUTO) 10 % (2-9); NEUTROPHILS % (AUTO) 64 % (42-75); PLATELET COUNT 685 x10^3/uL (130-400); RED BLOOD COUNT 3.23 x10^6/uL (3.82-5.3); RED CELL DISTRIBUTION WIDTH 24.7 % (9.6-15.2)
[2020-11-22 06:38] LABS: ALANINE AMINOTRANSFERASE 11 U/L (12-78); ALBUMIN 1.9 g/dL (3.4-5.0); ANION GAP 3 mmol/L (5-15); CALCIUM 8.9 mg/dL (8.5-10.1); CHLORIDE 106 mmol/L (98-107); CREATININE 0.72 mg/dL (0.55-1.02)
[2020-11-22 06:44] LABS: ALKALINE PHOSPHATASE 83 U/L (45-117); BILIRUBIN,TOTAL 0.3 mg/dL (0.2-1.0); TOTAL PROTEIN 5.8 g/dL (6.4-8.2)
[2020-11-22] MEDS: INSULIN LISPRO 100 UNITS/ML, PEN SQ-INSULIN SCH ×4 (07:00→20:15)
[2020-11-22] MEDS: ONDANSETRON 2MG/ML, 2ML IVPush PRN (07:46)
[2020-11-22] MEDS: INSULIN GLARGINE 100 UNITS/ML, PEN SQ-INSULIN SCH ×2 (07:50→20:15)
[2020-11-22] MEDS: SODIUM CHLORIDE FLUSH 10ML SYR IVF SCH ×2 (07:52→20:29)
[2020-11-22 07:56] VITALS: BP 118/79
[2020-11-22 13:25] VITALS: BP 120/79
[2020-11-22 20:05] VITALS: BP 117/73
[2020-11-23 00:54] VITALS: BP 110/71
[2020-11-23] MEDS: OXYcodone IR 5MG TABLET PO PRN ×3 (04:33→18:49)
[2020-11-23] MEDS: LEVOTHYROXINE 200 MCG TABLET PO SCH (04:34)
[2020-11-23] MEDS: AMPICILLIN/SULBACTAM 3 GM in SODIUM CHLORIDE 0.9% 100 ML IV SCH ×3 (05:18→20:18)
[2020-11-23] MEDS: INSULIN LISPRO 100 UNITS/ML, PEN SQ-INSULIN SCH ×4 (07:00→20:18)
[2020-11-23 07:48] VITALS: BP 128/83
[2020-11-23] MEDS: DOCUSATE 100 MG CAPSULE PO PRN (07:55)
[2020-11-23] MEDS: INSULIN GLARGINE 100 UNITS/ML, PEN SQ-INSULIN SCH ×2 (07:55→20:18)
[2020-11-23] MEDS: COLCHICINE 0.6 MG CAPSULE PO SCH ×2 (07:55→20:18)
[2020-11-23] MEDS: SODIUM CHLORIDE FLUSH 10ML SYR IVF SCH ×2 (09:00→20:21)
[2020-11-23] MEDS: morphine SULFATE 10 MG/ML, 1ML IVPush PRN ×2 (12:34→20:05)
[2020-11-23 12:55] VITALS: BP 128/64
[2020-11-23] MEDS: ONDANSETRON 2MG/ML, 2ML IVPush PRN (14:34)
[2020-11-23 19:07] VITALS: BP 122/82
[2020-11-24 00:36] VITALS: BP 111/74
[2020-11-24] MEDS: AMPICILLIN/SULBACTAM 3 GM in SODIUM CHLORIDE 0.9% 100 ML IV SCH ×4 (01:47→23:12)
[2020-11-24] MEDS: morphine SULFATE 10 MG/ML, 1ML IVPush PRN (04:55)
[2020-11-24 05:22] LABS: BASOPHILS % (AUTO) 1 % (0-1); EOSINOPHILS % (AUTO) 4 % (1-7); LYMPHOCYTES % (AUTO) 28 % (22-44); MEAN CORPUSCULAR HEMOGLOBIN 25.1 pg (27.0-34.8); MEAN CORPUSCULAR HGB CONC 31.9 g/dL (32.4-35.8); MEAN PLATELET VOLUME 7.4 fL (7.4-10.4); MONOCYTES % (AUTO) 12 % (2-9); NEUTROPHILS % (AUTO) 55 % (42-75); PLATELET COUNT 448 x10^3/uL (130-400); RED BLOOD COUNT 3.27 x10^6/uL (3.82-5.3)
[2020-11-24 05:27] LABS: ANION GAP 4 mmol/L (5-15); CALCIUM 8.8 mg/dL (8.5-10.1); CHLORIDE 105 mmol/L (98-107); CREATININE 0.68 mg/dL (0.55-1.02)
[2020-11-24] MEDS: LEVOTHYROXINE 200 MCG TABLET PO SCH (06:00)
[2020-11-24 07:13] VITALS: BP 117/77
[2020-11-24] MEDS ORDERED: FENTANYL PF 250 MCG/5ML ONE (07:15)
[2020-11-24] MEDS: INSULIN LISPRO 100 UNITS/ML, PEN SQ-INSULIN SCH ×4 (07:33→20:48)
[2020-11-24] MEDS ORDERED: CHLORHEXIDINE 15 ML UDC PO ONE (08:00)
[2020-11-24] MEDS ORDERED: PROPOFOL 50 ML ONE (08:11)
[2020-11-24] MEDS ORDERED: ONDANSETRON 2MG/ML, 2ML ONE (08:15)
[2020-11-24] MEDS ORDERED: morphine SULFATE 10 MG/ML, 1ML IVPush PRN (08:30)
[2020-11-24] MEDS ORDERED: LABETALOL 5MG/ML, 20ML IV PRN (08:30)
[2020-11-24] MEDS ORDERED: OXYcodone 5 MG/5 ML ORAL.SOL UDC PO PRN (08:30)
[2020-11-24] MEDS ORDERED: DIPHENHYDRAMINE 50 MG/ML, 1ML IVPush PRN (08:30)
[2020-11-24] MEDS ORDERED: EPHEDRINE 50 MG/ML, 1ML IVPush PRN (08:30)
[2020-11-24] MEDS ORDERED: PROMETHAZINE 25 MG/ML, 1ML IVPush PRN (08:30)
[2020-11-24] MEDS ORDERED: MEPERIDINE/PF 25MG/0.5ML IVPush PRN (08:30)
[2020-11-24] MEDS ORDERED: EPHEDRINE 50 MG/ML, 1ML IM PRN (08:30)
[2020-11-24] MEDS ORDERED: DIAZEPAM 5 MG/ML, 2ML IVPush PRN (08:30)
[2020-11-24] MEDS ORDERED: ACETAMINOPHEN 325 MG TABLET PO PRN (08:30)
[2020-11-24] MEDS ORDERED: ONDANSETRON 2MG/ML, 2ML IVPush PRN (08:30)
[2020-11-24] MEDS: SODIUM CHLORIDE FLUSH 10ML SYR IVF SCH ×2 (09:00→19:33)
[2020-11-24] MEDS ORDERED: FENTANYL PF 100 MCG/2ML ONE (09:24)
[2020-11-24] MEDS ORDERED: ACETAMINOPHEN 650 MG/20.3 ML UDC ONE (09:24)
[2020-11-24] MEDS ORDERED: OXYcodone 5 MG/5 ML ORAL.SOL UDC ONE (09:25)
[2020-11-24] MEDS: FENTANYL PF 100 MCG/2ML IV PRN ×2 (09:27→09:41)
[2020-11-24] MEDS: ACETAMINOPHEN 325 MG TABLET PO PRN (09:31)
[2020-11-24] MEDS: COLCHICINE 0.6 MG CAPSULE PO SCH ×2 (10:34→19:32)
[2020-11-24] MEDS: INSULIN GLARGINE 100 UNITS/ML, PEN SQ-INSULIN SCH ×2 (10:36→20:47)
[2020-11-24 12:01] VITALS: BP 117/83
[2020-11-24] MEDS: OXYcodone IR 5MG TABLET PO PRN ×2 (14:56→19:32)
[2020-11-24 19:55] VITALS: BP 96/66
[2020-11-25 01:25] VITALS: BP 118/77
[2020-11-25] MEDS: OXYcodone IR 5MG TABLET PO PRN ×4 (03:39→23:07)
[2020-11-25 03:52] LABS: BASOPHILS % (AUTO) 1 % (0-1); EOSINOPHILS % (AUTO) 4 % (1-7); LYMPHOCYTES % (AUTO) 22 % (22-44); MEAN CORPUSCULAR HEMOGLOBIN 25.3 pg (27.0-34.8); MEAN CORPUSCULAR HGB CONC 31.8 g/dL (32.4-35.8); MEAN PLATELET VOLUME 7.7 fL (7.4-10.4); MONOCYTES % (AUTO) 10 % (2-9); NEUTROPHILS % (AUTO) 63 % (42-75); PLATELET COUNT 367 x10^3/uL (130-400); RED BLOOD COUNT 3.14 x10^6/uL (3.82-5.3); RED CELL DISTRIBUTION WIDTH 25.2 % (9.6-15.2)
[2020-11-25 04:03] LABS: ALANINE AMINOTRANSFERASE 12 U/L (12-78); ALBUMIN 1.9 g/dL (3.4-5.0); ANION GAP 5 mmol/L (5-15); CALCIUM 8.5 mg/dL (8.5-10.1); CHLORIDE 104 mmol/L (98-107); CREATININE 0.82 mg/dL (0.55-1.02)
[2020-11-25 04:06] LABS: ALKALINE PHOSPHATASE 73 U/L (45-117); BILIRUBIN,TOTAL 0.2 mg/dL (0.2-1.0); TOTAL PROTEIN 5.9 g/dL (6.4-8.2)
[2020-11-25] MEDS: AMPICILLIN/SULBACTAM 3 GM in SODIUM CHLORIDE 0.9% 100 ML IV SCH ×4 (04:59→23:07)
[2020-11-25] MEDS: LEVOTHYROXINE 200 MCG TABLET PO SCH (04:59)
[2020-11-25] MEDS: INSULIN LISPRO 100 UNITS/ML, PEN SQ-INSULIN SCH ×4 (07:00→20:46)
[2020-11-25 07:01] VITALS: BP 110/67
[2020-11-25] MEDS: COLCHICINE 0.6 MG CAPSULE PO SCH ×2 (09:20→20:45)
[2020-11-25] MEDS: INSULIN GLARGINE 100 UNITS/ML, PEN SQ-INSULIN SCH ×2 (09:22→20:46)
[2020-11-25] MEDS: SODIUM CHLORIDE FLUSH 10ML SYR IVF SCH ×2 (09:22→20:46)
[2020-11-25 14:37] VITALS: BP 116/78
[2020-11-25] MEDS: ONDANSETRON 2MG/ML, 2ML IVPush PRN (14:37)
[2020-11-25 19:10] VITALS: BP 113/65
[2020-11-26] MEDS: morphine SULFATE 10 MG/ML, 1ML IVPush PRN ×3 (00:15→21:16)
[2020-11-26 00:44] VITALS: BP 107/63
[2020-11-26] MEDS: AMPICILLIN/SULBACTAM 3 GM in SODIUM CHLORIDE 0.9% 100 ML IV SCH ×4 (05:37→23:51)
[2020-11-26] MEDS: LEVOTHYROXINE 200 MCG TABLET PO SCH (05:37)
[2020-11-26] MEDS: INSULIN LISPRO 100 UNITS/ML, PEN SQ-INSULIN SCH ×4 (07:00→21:43)
[2020-11-26 07:16] VITALS: BP 100/67
[2020-11-26] MEDS: SODIUM CHLORIDE FLUSH 10ML SYR IVF SCH ×2 (09:04→21:00)
[2020-11-26] MEDS: COLCHICINE 0.6 MG CAPSULE PO SCH ×2 (09:05→21:16)
[2020-11-26] MEDS: OXYcodone IR 5MG TABLET PO PRN ×2 (09:08→16:06)
[2020-11-26] MEDS ORDERED: AMPI3VIA IV (09:47)
[2020-11-26] MEDS: INSULIN GLARGINE 100 UNITS/ML, PEN SQ-INSULIN SCH ×2 (10:22→21:48)
[2020-11-26 10:26] LABS: BASOPHILS % (AUTO) 1 % (0-1); EOSINOPHILS % (AUTO) 4 % (1-7); LYMPHOCYTES % (AUTO) 28 % (22-44); MEAN CORPUSCULAR HEMOGLOBIN 25.8 pg (27.0-34.8); MEAN CORPUSCULAR HGB CONC 32.5 g/dL (32.4-35.8); MEAN PLATELET VOLUME 7.7 fL (7.4-10.4); MONOCYTES % (AUTO) 9 % (2-9); NEUTROPHILS % (AUTO) 59 % (42-75); PLATELET COUNT 367 x10^3/uL (130-400); RED BLOOD COUNT 3.34 x10^6/uL (3.82-5.3); RED CELL DISTRIBUTION WIDTH 24.7 % (9.6-15.2)
[2020-11-26 13:14] VITALS: BP 105/72
[2020-11-26] MEDS: ONDANSETRON 2MG/ML, 2ML IVPush PRN (13:17)
[2020-11-26] MEDS: DOCUSATE 100 MG CAPSULE PO PRN (13:17)
[2020-11-26] MEDS ORDERED: OXYcodone IR 5MG TABLET PO ONE (15:30)
[2020-11-26 19:02] VITALS: BP 102/59
[2020-11-27 00:47] VITALS: BP 115/75
[2020-11-27] MEDS: OXYcodone IR 5MG TABLET PO PRN ×4 (03:49→23:35)
[2020-11-27] MEDS: AMPICILLIN/SULBACTAM 3 GM in SODIUM CHLORIDE 0.9% 100 ML IV SCH ×4 (05:38→23:30)
[2020-11-27] MEDS: LEVOTHYROXINE 200 MCG TABLET PO SCH (05:38)
[2020-11-27] MEDS: INSULIN LISPRO 100 UNITS/ML, PEN SQ-INSULIN SCH ×4 (07:00→21:00)
[2020-11-27 07:17] VITALS: BP 101/55
[2020-11-27] MEDS: SODIUM CHLORIDE FLUSH 10ML SYR IVF SCH ×2 (09:00→21:13)
[2020-11-27] MEDS: INSULIN GLARGINE 100 UNITS/ML, PEN SQ-INSULIN SCH ×2 (10:09→21:29)
[2020-11-27] MEDS: COLCHICINE 0.6 MG CAPSULE PO SCH ×2 (10:10→21:12)
[2020-11-27] MEDS: DOCUSATE 100 MG CAPSULE PO PRN (10:30)
[2020-11-27 13:20] VITALS: BP 101/60
[2020-11-27 19:41] VITALS: BP 123/80
[2020-11-28 01:34] VITALS: BP 118/73
[2020-11-28] MEDS: LEVOTHYROXINE 200 MCG TABLET PO SCH (05:57)
[2020-11-28] MEDS: AMPICILLIN/SULBACTAM 3 GM in SODIUM CHLORIDE 0.9% 100 ML IV SCH ×4 (05:57→23:14)
[2020-11-28] MEDS: ONDANSETRON 2MG/ML, 2ML IVPush PRN (06:07)
[2020-11-28 06:22] LABS: BASOPHILS % (AUTO) 1 % (0-1); EOSINOPHILS % (AUTO) 8 % (1-7); LYMPHOCYTES % (AUTO) 36 % (22-44); MEAN CORPUSCULAR HEMOGLOBIN 25.2 pg (27.0-34.8); MEAN CORPUSCULAR HGB CONC 31.5 g/dL (32.4-35.8); MEAN PLATELET VOLUME 8.1 fL (7.4-10.4); MONOCYTES % (AUTO) 12 % (2-9); NEUTROPHILS % (AUTO) 44 % (42-75); PLATELET COUNT 369 x10^3/uL (130-400); RED CELL DISTRIBUTION WIDTH 24.8 % (9.6-15.2)
[2020-11-28 06:24] LABS: ANION GAP 4 mmol/L (5-15); CALCIUM 9.1 mg/dL (8.5-10.1); CHLORIDE 104 mmol/L (98-107)
[2020-11-28 06:47] LABS: ANISOCYTOSIS 1+; HYPOCHROMIA 1+; OVALOCYTES 1+; POLYCHROMASIA 1+
[2020-11-28 06:48] LABS: <PLATELET ESTIMATE> ADEQUATE; <PLT MORPHOLOGY> NORMAL PLT MORPH
[2020-11-28] MEDS: INSULIN LISPRO 100 UNITS/ML, PEN SQ-INSULIN SCH ×4 (07:00→21:11)
[2020-11-28 07:09] VITALS: BP 119/79
[2020-11-28] MEDS: COLCHICINE 0.6 MG CAPSULE PO SCH ×2 (07:59→20:15)
[2020-11-28] MEDS: SODIUM CHLORIDE FLUSH 10ML SYR IVF SCH ×2 (08:00→20:15)
[2020-11-28] MEDS: INSULIN GLARGINE 100 UNITS/ML, PEN SQ-INSULIN SCH ×2 (08:00→21:12)
[2020-11-28] MEDS: OXYcodone IR 5MG TABLET PO PRN ×3 (08:24→21:10)
[2020-11-28 13:08] VITALS: BP 104/69
[2020-11-28 18:46] VITALS: BP 115/77
[2020-11-29 00:25] VITALS: BP 117/75
[2020-11-29] MEDS: AMPICILLIN/SULBACTAM 3 GM in SODIUM CHLORIDE 0.9% 100 ML IV SCH ×4 (05:17→22:57)
[2020-11-29] MEDS: LEVOTHYROXINE 200 MCG TABLET PO SCH (05:22)
[2020-11-29 05:38] LABS: BASOPHILS % (AUTO) 1 % (0-1); EOSINOPHILS % (AUTO) 10 % (1-7); LYMPHOCYTES % (AUTO) 39 % (22-44); MEAN CORPUSCULAR HEMOGLOBIN 25.3 pg (27.0-34.8); MEAN CORPUSCULAR HGB CONC 31.7 g/dL (32.4-35.8); MEAN PLATELET VOLUME 8.1 fL (7.4-10.4); MONOCYTES % (AUTO) 12 % (2-9); NEUTROPHILS % (AUTO) 38 % (42-75); PLATELET COUNT 379 x10^3/uL (130-400); RED BLOOD COUNT 3.29 x10^6/uL (3.82-5.3); RED CELL DISTRIBUTION WIDTH 24.5 % (9.6-15.2)
[2020-11-29 05:42] LABS: ALANINE AMINOTRANSFERASE 14 U/L (12-78); ALBUMIN 2.3 g/dL (3.4-5.0); ANION GAP 4 mmol/L (5-15); C-REACTIVE PROTEIN, QUANT 0.82 mg/dL (0.02-0.49); CALCIUM 8.9 mg/dL (8.5-10.1); CHLORIDE 106 mmol/L (98-107)
[2020-11-29 05:44] LABS: ALKALINE PHOSPHATASE 71 U/L (45-117); BILIRUBIN,TOTAL 0.2 mg/dL (0.2-1.0); TOTAL PROTEIN 6.5 g/dL (6.4-8.2)
[2020-11-29] MEDS ORDERED: OXYcodone IR 5MG TABLET PO PRN (06:30)
[2020-11-29] MEDS: INSULIN LISPRO 100 UNITS/ML, PEN SQ-INSULIN SCH ×4 (07:00→21:12)
[2020-11-29 07:41] LABS: HCT (SEDRATE) 26.3 % (34.6-47.8)
[2020-11-29 09:05] VITALS: BP 113/77
[2020-11-29] MEDS: COLCHICINE 0.6 MG CAPSULE PO SCH ×2 (09:11→21:12)
[2020-11-29] MEDS: SODIUM CHLORIDE FLUSH 10ML SYR IVF SCH ×2 (09:12→21:20)
[2020-11-29] MEDS: INSULIN GLARGINE 100 UNITS/ML, PEN SQ-INSULIN SCH ×2 (09:14→21:13)
[2020-11-29] MEDS: DOCUSATE 100 MG CAPSULE PO PRN ×2 (10:54→12:02)
[2020-11-29] MEDS: SENNA/DOCUSATE TABLET PO SCH (11:00)
[2020-11-29 13:42] VITALS: BP 121/77
[2020-11-29] MEDS: OXYcodone IR 5MG TABLET PO PRN (16:40)
[2020-11-29 18:52] VITALS: BP 122/76
[2020-11-30 00:45] VITALS: BP 123/78
[2020-11-30] MEDS: OXYcodone IR 5MG TABLET PO PRN ×3 (00:55→10:36)
[2020-11-30] MEDS: AMPICILLIN/SULBACTAM 3 GM in SODIUM CHLORIDE 0.9% 100 ML IV SCH ×3 (05:02→16:42)
[2020-11-30] MEDS: LEVOTHYROXINE 200 MCG TABLET PO SCH (05:02)
[2020-11-30] MEDS: ONDANSETRON 2MG/ML, 2ML IVPush PRN (05:58)
[2020-11-30] MEDS: INSULIN LISPRO 100 UNITS/ML, PEN SQ-INSULIN SCH ×3 (07:00→16:00)
[2020-11-30 07:09] VITALS: BP 114/76
[2020-11-30] MEDS: COLCHICINE 0.6 MG CAPSULE PO SCH (07:53)
[2020-11-30] MEDS: SENNA/DOCUSATE TABLET PO SCH (07:54)
[2020-11-30] MEDS: SODIUM CHLORIDE FLUSH 10ML SYR IVF SCH (09:10)
[2020-11-30] MEDS: INSULIN GLARGINE 100 UNITS/ML, PEN SQ-INSULIN SCH (09:10)
[2020-11-30] MEDS ORDERED: OXYC5TAB98 PO ×4 (10:38→10:46)
[2020-11-30] MEDS ORDERED: SENN-211 PO (10:38)
[2020-11-30] MEDS ORDERED: AMPI3VIA IV (10:46)
[2020-11-30 12:11] VITALS: BP 134/85
== END 2020-11-30 16:45 | DRG 579 ==
LOC: ED 18:00 → EDIP 19:59 → 3N 21:11
PROVIDERS: ADMIT Family Medicine; ATTEND Family Medicine
PROC: 2W1NX6Z Compression of Right Upper Leg using Pressure Dressing (ICD-10-PCS; 2020-11-11)
PROC: 0J9L0ZZ Drainage of Right Upper Leg Subcutaneous Tissue and Fascia, Open Approach (ICD-10-PCS; principal; 2020-11-11 12:00)
PROC: 30233N1 Transfusion of Nonautologous Red Blood Cells into Peripheral Vein, Percutaneous Approach (ICD-10-PCS; 2020-11-12)
PROC: 2W0NX6Z Change Pressure Dressing on Right Upper Leg (ICD-10-PCS; 2020-11-13)
PROC: 0JQL0ZZ Repair Right Upper Leg Subcutaneous Tissue and Fascia, Open Approach (ICD-10-PCS; 2020-11-16)
PROC: 02HV33Z Insertion of Infusion Device into Superior Vena Cava, Percutaneous Approach (ICD-10-PCS; 2020-11-19)
PROC: B5181ZA Fluoroscopy of Superior Vena Cava using Low Osmolar Contrast, Guidance (ICD-10-PCS; 2020-11-19)
PROC: B548ZZA Ultrasonography of Superior Vena Cava, Guidance (ICD-10-PCS; 2020-11-19)
PROC: 0Y9C0ZZ Drainage of Right Upper Leg, Open Approach (ICD-10-PCS; 2020-11-24)
DX: L02.415 Cutaneous abscess of right lower limb (principal); E43 Unspecified severe protein-calorie malnutrition; D62 Acute posthemorrhagic anemia; Z68.41 Body mass index [BMI] 40.0-44.9, adult; M60.003 Infective myositis, unspecified right leg; I12.9 Hypertensive chronic kidney disease with stage 1 through stage 4 chronic kidney disease, or unspecified chronic kidney disease; K59.00 Constipation, unspecified; E78.5 Hyperlipidemia, unspecified; E83.42 Hypomagnesemia; E87.6 Hypokalemia; F17.210 Nicotine dependence, cigarettes, uncomplicated; Z20.822 Contact with and (suspected) exposure to COVID-19; E03.9 Hypothyroidism, unspecified; N18.30 Chronic kidney disease, stage 3 unspecified; S70.11XA Contusion of right thigh, initial encounter; E11.22 Type 2 diabetes mellitus with diabetic chronic kidney disease; E11.649 Type 2 diabetes mellitus with hypoglycemia without coma; E11.65 Type 2 diabetes mellitus with hyperglycemia; E66.01 Morbid (severe) obesity due to excess calories; D50.9 Iron deficiency anemia, unspecified; B95.61 Methicillin susceptible Staphylococcus aureus infection as the cause of diseases classified elsewhere; D47.3 Essential (hemorrhagic) thrombocythemia; K52.9 Noninfective gastroenteritis and colitis, unspecified; M10.9 Gout, unspecified; Z88.8 Allergy status to other drugs, medicaments and biological substances; Z88.1 Allergy status to other antibiotic agents; Z91.041 Radiographic dye allergy status; Z75.1 Person awaiting admission to adequate facility elsewhere; Z79.82 Long term (current) use of aspirin; Z79.899 Other long term (current) drug therapy; Z88.2 Allergy status to sulfonamides; X58.XXXA Exposure to other specified factors, initial encounter; Y93.89 Activity, other specified; Y92.89 Other specified places as the place of occurrence of the external cause; Y99.8 Other external cause status
CPT/HCPCS: 36415; 73552; 99285; J3490; 36573; 80048; 80053; 80202; 82607; 82728; 82947; 82962; 83036; 83540; 83550; 83605; 83735; 84100; 84443; 84702; 85018; 85025; 85610; 85651; 86140; 86850; 86900; 86923; 87040; 87070; 87075; 87077; 87147; 87186; 87205; 87635; 88305; 93005; G0378; J0295; J0690; J1100; J1170; J1885; J2175; J2250; J2405; J2704; J3010; J3370; J3480; C1751; J0330; J1815; J2270; J3475; J7040; J7120; P9016

== ENCOUNTER 2020-12-09 12:13 | Inpatient (IN) | payer OTHER ==
[~2020-12-09] VITALS: Ht 170.2 cm; Wt 101.7 kg
[~2020-12-09 12:13] MED LIST: ACET325T26 PO; ALLO300T PO; AMOX1TAB64 PO; AMPI3VIA IV; BISO10TA8 PO; DOCU-131 PO; GLYB5TAB3 PO; IBUP-1223 PO; INSU100I11 SQ-INSULIN; INSU100I13 SQ-INSULIN; LEVO200C2 PO; LISI40TA9 PO; LOVA40TA2 PO; METF10007 PO; ONDA4TAB7 PO; OXYC10TA72 PO; OXYC5TAB98 PO; POLY17PO5 PO; SENN-211 PO
--- NOTE | 2020-12-09 12:57 | NUR ---
NEW REDNESS/SWELLING AROUND HEALING RIGHT LEG WOUND VAC X 2 DAYS. SLIGHT NAUSEA AND CHILLS leading edge of cellulitus encircled with skin marker/timed & dated received her daily dose of unasyn via picc line at 5am
[2020-12-09] MEDS ORDERED: SODIUM CHLORIDE FLUSH 10ML SYR IVF ONE (13:00)
[2020-12-09 13:30] LABS: ALBUMIN 2.1 g/dL (3.4-5.0); ANION GAP 3 mmol/L (5-15); CALCIUM 8.2 mg/dL (8.5-10.1); CHLORIDE 108 mmol/L (98-107); CREATININE 0.64 mg/dL (0.55-1.02)
[2020-12-09] MEDS ORDERED: AMPICILLIN/SULBACTAM 3 GM in SODIUM CHLORIDE 0.9% 100 ML IV ONE (13:30)
[2020-12-09 13:34] LABS: BASOPHILS % (AUTO) 0 % (0-1); EOSINOPHILS % (AUTO) 6 % (1-7); LYMPHOCYTES % (AUTO) 24 % (22-44); MEAN CORPUSCULAR HEMOGLOBIN 23.5 pg (27.0-34.8); MEAN CORPUSCULAR HGB CONC 30.7 g/dL (32.4-35.8); MEAN PLATELET VOLUME 8.5 fL (7.4-10.4); MONOCYTES % (AUTO) 8 % (2-9); NEUTROPHILS % (AUTO) 61 % (42-75); PLATELET COUNT 394 x10^3/uL (130-400); RED BLOOD COUNT 3.61 x10^6/uL (3.82-5.3); RED CELL DISTRIBUTION WIDTH 21.4 % (9.6-15.2)
[2020-12-09 14:03] LABS: HCT (SEDRATE) 27.8 % (34.6-47.8)
--- NOTE | 2020-12-09 14:13 | NUR ---
LAB AT BEDSIDE FOR FULL SET OF LABS INCLUDING BLOOD CULTURES X2
[2020-12-09] MEDS ORDERED: ONDANSETRON 2MG/ML, 2ML ONE (14:39)
[2020-12-09] MEDS ORDERED: MORPHINE SULFATE 4 MG/ML, 1ML ONE (14:39)
[2020-12-09] MEDS ORDERED: MORPHINE SULFATE 4 MG/ML, 1ML IVPush PRN (15:00)
[2020-12-09] MEDS ORDERED: ONDANSETRON 2MG/ML, 2ML IVPush ONE (15:00)
--- NOTE | 2020-12-09 15:13 | NUR ---
report to jamie sheldon
[2020-12-09] MEDS ORDERED: POTA10TA17 PO (15:23)
[2020-12-09] MEDS ORDERED: HYDROcodone/APAP 5/325 TABLET PO PRN (15:30)
[2020-12-09] MEDS: LACTATED RINGERS 1,000 ML IV SCH (15:30)
[2020-12-09] MEDS ORDERED: POLYETHYLENE GLYCOL 17 GM PACKET PO PRN (15:30)
[2020-12-09] MEDS ORDERED: ENALAPRILAT 1.25 MG/ML, 2ML IVPush PRN (15:30)
[2020-12-09] MEDS: INSULIN LISPRO 100 UNITS/ML, PEN SQ-INSULIN SCH ×2 (16:00→20:30)
[2020-12-09 16:16] VITALS: BP 124/79
[2020-12-09 16:21] LABS: BASOPHILS % (AUTO) 1 % (0-1); EOSINOPHILS % (AUTO) 6 % (1-7); LYMPHOCYTES % (AUTO) 22 % (22-44); MEAN CORPUSCULAR HEMOGLOBIN 23.9 pg (27.0-34.8); MEAN CORPUSCULAR HGB CONC 30.9 g/dL (32.4-35.8); MEAN PLATELET VOLUME 8.5 fL (7.4-10.4); MONOCYTES % (AUTO) 8 % (2-9); NEUTROPHILS % (AUTO) 63 % (42-75); PLATELET COUNT 411 x10^3/uL (130-400); RED BLOOD COUNT 3.58 x10^6/uL (3.82-5.3); RED CELL DISTRIBUTION WIDTH 21.6 % (9.6-15.2)
[2020-12-09] MEDS ORDERED: GADOTERATE 5 MMOL/10ML SYR ONE (18:15)
[2020-12-09] MEDS ORDERED: GADOTERATE 7.5 MMOL/15ML SYR ONE (18:15)
[2020-12-09 19:47] VITALS: BP 129/76
[2020-12-09] MEDS: ALLOPURINOL 300 MG TABLET PO SCH (19:58)
[2020-12-09] MEDS: LOVASTATIN 40 MG TABLET PO SCH (19:58)
[2020-12-09] MEDS: INSULIN GLARGINE 100 UNITS/ML, PEN SQ-INSULIN SCH (20:33)
[2020-12-09] MEDS: morphine SULFATE 10 MG/ML, 1ML IVPush PRN (22:07)
[2020-12-09] MEDS: ONDANSETRON 2MG/ML, 2ML IVPush PRN (22:12)
[2020-12-09] MEDS: AMPICILLIN/SULBACTAM 3 GM in SODIUM CHLORIDE 0.9% 100 ML IV SCH (22:32)
[2020-12-09] MEDS: OXYcodone IR 5MG TABLET PO PRN (22:56)
[2020-12-10 00:53] VITALS: BP 135/81
[2020-12-10] MEDS: AMPICILLIN/SULBACTAM 3 GM in SODIUM CHLORIDE 0.9% 100 ML IV SCH ×4 (04:33→22:20)
[2020-12-10 04:54] LABS: ANION GAP 4 mmol/L (5-15); CHLORIDE 108 mmol/L (98-107)
[2020-12-10 04:56] LABS: ALANINE AMINOTRANSFERASE 12 U/L (12-78); ALKALINE PHOSPHATASE 64 U/L (45-117); BILIRUBIN,TOTAL 0.2 mg/dL (0.2-1.0); TOTAL PROTEIN 5.4 g/dL (6.4-8.2)
[2020-12-10 06:34] VITALS: BP 122/78
[2020-12-10] MEDS: INSULIN LISPRO 100 UNITS/ML, PEN SQ-INSULIN SCH ×4 (07:00→21:03)
[2020-12-10] MEDS: LACTATED RINGERS 1,000 ML IV SCH (07:30)
[2020-12-10] MEDS: ONDANSETRON 2MG/ML, 2ML IVPush PRN (08:35)
[2020-12-10] MEDS: morphine SULFATE 10 MG/ML, 1ML IVPush PRN ×3 (08:36→20:00)
[2020-12-10] MEDS: INSULIN GLARGINE 100 UNITS/ML, PEN SQ-INSULIN SCH ×2 (08:53→22:57)
[2020-12-10] MEDS: OXYcodone IR 5MG TABLET PO PRN ×2 (09:50→22:21)
[2020-12-10 13:58] VITALS: BP 126/78
[2020-12-10 19:15] VITALS: BP 125/88
[2020-12-10] MEDS ORDERED: GLUCAGON 1 MG IM PRN (20:30)
[2020-12-10] MEDS ORDERED: DEXTROSE 4 GM TAB.CHEW PO PRN (20:30)
[2020-12-10] MEDS ORDERED: DEXTROSE 50%, 50ML SYRINGE IVPush PRN (20:30)
[2020-12-10] MEDS: SODIUM CHLORIDE FLUSH 10ML SYR IVF SCH (21:00)
[2020-12-10] MEDS: ALLOPURINOL 300 MG TABLET PO SCH (22:20)
[2020-12-10] MEDS: LOVASTATIN 40 MG TABLET PO SCH (22:20)
[2020-12-11 03:42] VITALS: BP 118/81
[2020-12-11] MEDS: AMPICILLIN/SULBACTAM 3 GM in SODIUM CHLORIDE 0.9% 100 ML IV SCH ×4 (03:43→22:14)
[2020-12-11] MEDS: morphine SULFATE 10 MG/ML, 1ML IVPush PRN ×3 (04:01→17:37)
[2020-12-11] MEDS: LACTATED RINGERS 1,000 ML IV SCH ×2 (06:31→19:48)
[2020-12-11] MEDS: INSULIN LISPRO 100 UNITS/ML, PEN SQ-INSULIN SCH ×4 (07:00→20:02)
[2020-12-11] MEDS ORDERED: FENTANYL PF 100 MCG/2ML ONE ×2 (07:12→08:09)
[2020-12-11] MEDS: INSULIN GLARGINE 100 UNITS/ML, PEN SQ-INSULIN SCH ×2 (07:27→20:02)
[2020-12-11] MEDS: SODIUM CHLORIDE FLUSH 10ML SYR IVF SCH ×2 (07:28→20:01)
[2020-12-11] MEDS ORDERED: DEXAMETHASONE 4 MG/ML, 1ML ONE (07:46)
[2020-12-11] MEDS ORDERED: PROPOFOL 10 MG/ML, 20ML ONE (07:46)
[2020-12-11] MEDS ORDERED: ONDANSETRON 2MG/ML, 2ML ONE (07:46)
[2020-12-11] MEDS ORDERED: CEFAZOLIN 1,000 MG ONE (07:46)
[2020-12-11] MEDS ORDERED: METOPROLOL 1 MG/ML, 5ML IV PRN (08:00)
[2020-12-11] MEDS ORDERED: PROMETHAZINE 25 MG/ML, 1ML IVPush PRN (08:00)
[2020-12-11] MEDS ORDERED: ACETAMINOPHEN 325 MG TABLET PO PRN (08:00)
[2020-12-11] MEDS ORDERED: METHOCARBAMOL 1,000 MG in DEXTROSE 5% 100 ML IV PRN (08:00)
[2020-12-11] MEDS ORDERED: hydrALAzine 20 MG/ML, 1ML IV PRN (08:00)
[2020-12-11] MEDS ORDERED: OXYcodone 5 MG/5 ML ORAL.SOL UDC PO PRN (08:00)
[2020-12-11] MEDS ORDERED: HYDROmorphone 1 MG/ML, 1ML INJ IVPush PRN (08:00)
[2020-12-11] MEDS ORDERED: LABETALOL 5MG/ML, 20ML IV PRN (08:00)
[2020-12-11] MEDS ORDERED: LORazepam 2 MG/ML, 1ML IVPush PRN (08:00)
[2020-12-11] MEDS ORDERED: FENTANYL PF 100 MCG/2ML IV PRN (08:00)
[2020-12-11] MEDS ORDERED: PROMETHAZINE 25 MG SUPP PR PRN (08:00)
[2020-12-11] MEDS ORDERED: ONDANSETRON 2MG/ML, 2ML IVPush PRN (08:00)
[2020-12-11] MEDS ORDERED: OXYcodone 5 MG/5 ML ORAL.SOL UDC ONE ×2 (08:09→08:16)
[2020-12-11] MEDS ORDERED: ACETAMINOPHEN 650 MG/20.3 ML UDC ONE (08:10)
[2020-12-11 09:17] VITALS: BP 129/84
[2020-12-11 13:31] VITALS: BP 128/84
[2020-12-11] MEDS: ONDANSETRON 2MG/ML, 2ML IVPush PRN (19:48)
[2020-12-11] MEDS: LOVASTATIN 40 MG TABLET PO SCH (20:01)
[2020-12-11] MEDS: ALLOPURINOL 300 MG TABLET PO SCH (20:01)
[2020-12-11 20:58] VITALS: BP 125/82
[2020-12-11] MEDS: OXYcodone IR 5MG TABLET PO PRN (22:13)
[2020-12-12 01:35] VITALS: BP 115/77
[2020-12-12] MEDS: morphine SULFATE 10 MG/ML, 1ML IVPush PRN ×2 (01:49→20:09)
[2020-12-12] MEDS: AMPICILLIN/SULBACTAM 3 GM in SODIUM CHLORIDE 0.9% 100 ML IV SCH ×4 (04:32→22:17)
[2020-12-12] MEDS: OXYcodone IR 5MG TABLET PO PRN ×4 (04:38→22:16)
[2020-12-12] MEDS: INSULIN LISPRO 100 UNITS/ML, PEN SQ-INSULIN SCH ×4 (07:00→20:28)
[2020-12-12 07:11] VITALS: BP 133/82
[2020-12-12] MEDS: SODIUM CHLORIDE FLUSH 10ML SYR IVF SCH ×2 (09:00→20:09)
[2020-12-12] MEDS: INSULIN GLARGINE 100 UNITS/ML, PEN SQ-INSULIN SCH ×2 (09:22→20:28)
[2020-12-12 16:13] VITALS: BP 115/86
[2020-12-12] MEDS: POTASSIUM CHLORIDE 20 MEQ TAB.ER.PRT PO SCH (16:15)
[2020-12-12] MEDS: FUROSEMIDE 20 MG/2 ML IV SCH (16:16)
[2020-12-12] MEDS: LACTATED RINGERS 1,000 ML IV SCH (20:09)
[2020-12-12] MEDS: ALLOPURINOL 300 MG TABLET PO SCH (20:09)
[2020-12-12] MEDS: LOVASTATIN 40 MG TABLET PO SCH (20:09)
[2020-12-12 20:19] VITALS: BP 119/79
[2020-12-13 03:22] VITALS: BP 117/78
[2020-12-13] MEDS: morphine SULFATE 10 MG/ML, 1ML IVPush PRN ×2 (03:25→10:56)
[2020-12-13] MEDS: AMPICILLIN/SULBACTAM 3 GM in SODIUM CHLORIDE 0.9% 100 ML IV SCH ×4 (03:44→22:37)
[2020-12-13 04:02] LABS: BASOPHILS % (AUTO) 1 % (0-1); EOSINOPHILS % (AUTO) 9 % (1-7); LYMPHOCYTES % (AUTO) 39 % (22-44); MEAN CORPUSCULAR HEMOGLOBIN 23.7 pg (27.0-34.8); MEAN CORPUSCULAR HGB CONC 31.5 g/dL (32.4-35.8); MEAN PLATELET VOLUME 8.3 fL (7.4-10.4); MONOCYTES % (AUTO) 11 % (2-9); NEUTROPHILS % (AUTO) 41 % (42-75); PLATELET COUNT 346 x10^3/uL (130-400); RED BLOOD COUNT 3.49 x10^6/uL (3.82-5.3); RED CELL DISTRIBUTION WIDTH 20.9 % (9.6-15.2)
[2020-12-13 04:13] LABS: CALCIUM 7.9 mg/dL (8.5-10.1); CREATININE 0.82 mg/dL (0.55-1.02)
[2020-12-13 04:19] LABS: CHLORIDE 107 mmol/L (98-107)
[2020-12-13 04:21] LABS: ANION GAP 3 mmol/L (5-15)
[2020-12-13 06:55] VITALS: BP 130/66
[2020-12-13] MEDS: INSULIN LISPRO 100 UNITS/ML, PEN SQ-INSULIN SCH ×4 (07:00→20:54)
[2020-12-13] MEDS: LEVOTHYROXINE 200 MCG TABLET PO SCH (07:52)
[2020-12-13] MEDS: OXYcodone IR 5MG TABLET PO PRN ×3 (07:52→22:36)
[2020-12-13] MEDS: POTASSIUM CHLORIDE 20 MEQ TAB.ER.PRT PO SCH ×3 (07:52→16:01)
[2020-12-13] MEDS: SODIUM CHLORIDE FLUSH 10ML SYR IVF SCH ×2 (07:53→20:53)
[2020-12-13] MEDS: FUROSEMIDE 20 MG/2 ML IV SCH ×2 (07:53→16:01)
[2020-12-13] MEDS: INSULIN GLARGINE 100 UNITS/ML, PEN SQ-INSULIN SCH ×2 (07:54→20:54)
[2020-12-13] MEDS: ONDANSETRON 2MG/ML, 2ML IVPush PRN (12:06)
[2020-12-13 12:41] VITALS: BP 143/83
[2020-12-13 19:18] VITALS: BP 120/69
[2020-12-13] MEDS: LOVASTATIN 40 MG TABLET PO SCH (20:53)
[2020-12-13] MEDS: ALLOPURINOL 300 MG TABLET PO SCH (20:53)
[2020-12-14 01:15] VITALS: BP 119/83
[2020-12-14] MEDS: AMPICILLIN/SULBACTAM 3 GM in SODIUM CHLORIDE 0.9% 100 ML IV SCH ×4 (04:08→22:11)
[2020-12-14] MEDS: LEVOTHYROXINE 200 MCG TABLET PO SCH (05:52)
[2020-12-14] MEDS: OXYcodone IR 5MG TABLET PO PRN ×3 (05:52→19:27)
[2020-12-14] MEDS: INSULIN LISPRO 100 UNITS/ML, PEN SQ-INSULIN SCH ×4 (07:00→21:00)
[2020-12-14 07:45] VITALS: BP 114/72
[2020-12-14] MEDS: FUROSEMIDE 20 MG/2 ML IV SCH ×2 (07:50→16:02)
[2020-12-14] MEDS: POTASSIUM CHLORIDE 20 MEQ TAB.ER.PRT PO SCH ×3 (07:50→16:00)
[2020-12-14] MEDS: SODIUM CHLORIDE FLUSH 10ML SYR IVF SCH ×2 (07:50→20:46)
[2020-12-14] MEDS: INSULIN GLARGINE 100 UNITS/ML, PEN SQ-INSULIN SCH ×2 (07:58→21:01)
[2020-12-14] MEDS: ACETAMINOPHEN 500 MG TABLET PO PRN (09:23)
[2020-12-14 14:34] VITALS: BP 101/67
[2020-12-14] MEDS: ONDANSETRON 2MG/ML, 2ML IVPush PRN (17:18)
[2020-12-14 18:21] VITALS: BP 115/71
[2020-12-14] MEDS: LOVASTATIN 40 MG TABLET PO SCH (20:47)
[2020-12-14] MEDS: ALLOPURINOL 300 MG TABLET PO SCH (20:47)
[2020-12-14] MEDS: MELATONIN 5 MG TABLET PO PRN (22:11)
[2020-12-15 00:27] VITALS: BP 124/82
[2020-12-15] MEDS: AMPICILLIN/SULBACTAM 3 GM in SODIUM CHLORIDE 0.9% 100 ML IV SCH ×4 (04:13→22:07)
[2020-12-15] MEDS: OXYcodone IR 5MG TABLET PO PRN ×4 (05:22→22:48)
[2020-12-15] MEDS: LEVOTHYROXINE 200 MCG TABLET PO SCH (05:22)
[2020-12-15 05:41] LABS: ANION GAP 5 mmol/L (5-15); CALCIUM 8.3 mg/dL (8.5-10.1); CHLORIDE 106 mmol/L (98-107); CREATININE 0.61 mg/dL (0.55-1.02)
[2020-12-15] MEDS: INSULIN LISPRO 100 UNITS/ML, PEN SQ-INSULIN SCH ×4 (07:00→20:53)
[2020-12-15 07:37] VITALS: BP 122/61
[2020-12-15] MEDS: FUROSEMIDE 20 MG/2 ML IV SCH (07:42)
[2020-12-15] MEDS: POTASSIUM CHLORIDE 20 MEQ TAB.ER.PRT PO SCH ×4 (07:43→20:45)
[2020-12-15] MEDS: SODIUM CHLORIDE FLUSH 10ML SYR IVF SCH ×2 (07:48→20:54)
[2020-12-15] MEDS: ACETAMINOPHEN 500 MG TABLET PO PRN (07:54)
[2020-12-15] MEDS: INSULIN GLARGINE 100 UNITS/ML, PEN SQ-INSULIN SCH ×2 (09:35→20:54)
[2020-12-15] MEDS: ACETAMINOPHEN 325 MG TABLET PO PRN ×2 (13:44→20:53)
[2020-12-15 13:56] VITALS: BP 119/77
[2020-12-15] MEDS: FUROSEMIDE 40 MG/4 ML IV SCH (17:50)
[2020-12-15] MEDS: ENOXAPARIN 40 MG/0.4 ML SQ SCH (17:56)
[2020-12-15 19:14] VITALS: BP 107/71
[2020-12-15] MEDS: LOVASTATIN 40 MG TABLET PO SCH (20:46)
[2020-12-15] MEDS: ALLOPURINOL 300 MG TABLET PO SCH (20:46)
[2020-12-15] MEDS: MELATONIN 5 MG TABLET PO PRN (22:48)
[2020-12-16 01:28] VITALS: BP 112/74
[2020-12-16] MEDS: AMPICILLIN/SULBACTAM 3 GM in SODIUM CHLORIDE 0.9% 100 ML IV SCH ×4 (04:26→22:03)
[2020-12-16] MEDS: OXYcodone IR 5MG TABLET PO PRN ×3 (04:43→20:52)
[2020-12-16 05:39] LABS: ANION GAP 5 mmol/L (5-15); CALCIUM 8.6 mg/dL (8.5-10.1); CHLORIDE 106 mmol/L (98-107); CREATININE 0.94 mg/dL (0.55-1.02)
[2020-12-16 05:41] LABS: BASOPHILS % (AUTO) 0 % (0-1); EOSINOPHILS % (AUTO) 8 % (1-7); LYMPHOCYTES % (AUTO) 40 % (22-44); MEAN CORPUSCULAR HEMOGLOBIN 23.2 pg (27.0-34.8); MEAN PLATELET VOLUME 8.5 fL (7.4-10.4); MONOCYTES % (AUTO) 8 % (2-9); NEUTROPHILS % (AUTO) 44 % (42-75); PLATELET COUNT 422 x10^3/uL (130-400); RED BLOOD COUNT 3.86 x10^6/uL (3.82-5.3); RED CELL DISTRIBUTION WIDTH 21.7 % (9.6-15.2)
[2020-12-16] MEDS: ACETAMINOPHEN 325 MG TABLET PO PRN (06:21)
[2020-12-16] MEDS: LEVOTHYROXINE 200 MCG TABLET PO SCH (06:21)
[2020-12-16] MEDS: INSULIN LISPRO 100 UNITS/ML, PEN SQ-INSULIN SCH ×4 (07:00→20:57)
[2020-12-16 07:43] VITALS: BP 114/75
[2020-12-16] MEDS: FUROSEMIDE 40 MG/4 ML IV SCH ×2 (07:47→17:54)
[2020-12-16] MEDS: SODIUM CHLORIDE FLUSH 10ML SYR IVF SCH ×2 (07:49→21:00)
[2020-12-16] MEDS: POTASSIUM CHLORIDE 20 MEQ TAB.ER.PRT PO SCH ×2 (09:30→20:52)
[2020-12-16] MEDS: INSULIN GLARGINE 100 UNITS/ML, PEN SQ-INSULIN SCH ×2 (09:34→20:57)
[2020-12-16] MEDS: ACETAMINOPHEN 500 MG TABLET PO PRN (13:03)
[2020-12-16 13:32] VITALS: BP 115/70
[2020-12-16] MEDS: ENOXAPARIN 40 MG/0.4 ML SQ SCH (17:55)
[2020-12-16] MEDS: ALLOPURINOL 300 MG TABLET PO SCH (20:52)
[2020-12-16] MEDS: LOVASTATIN 40 MG TABLET PO SCH (20:52)
[2020-12-16 21:09] VITALS: BP 113/69
[2020-12-16] MEDS: MELATONIN 5 MG TABLET PO PRN (22:04)
[2020-12-17] MEDS: ACETAMINOPHEN 325 MG TABLET PO PRN ×2 (03:57→14:42)
[2020-12-17] MEDS: AMPICILLIN/SULBACTAM 3 GM in SODIUM CHLORIDE 0.9% 100 ML IV SCH ×4 (03:57→23:30)
[2020-12-17 03:59] VITALS: BP 110/78
[2020-12-17] MEDS: LEVOTHYROXINE 200 MCG TABLET PO SCH (05:37)
[2020-12-17] MEDS: INSULIN LISPRO 100 UNITS/ML, PEN SQ-INSULIN SCH ×4 (07:00→21:41)
[2020-12-17 07:20] VITALS: BP 118/78
[2020-12-17] MEDS: POTASSIUM CHLORIDE 20 MEQ TAB.ER.PRT PO SCH ×2 (08:38→20:16)
[2020-12-17] MEDS: FUROSEMIDE 40 MG/4 ML IV SCH (08:38)
[2020-12-17] MEDS: SODIUM CHLORIDE FLUSH 10ML SYR IVF SCH ×2 (08:39→20:17)
[2020-12-17] MEDS: INSULIN GLARGINE 100 UNITS/ML, PEN SQ-INSULIN SCH ×2 (08:40→20:17)
[2020-12-17] MEDS: OXYcodone IR 5MG TABLET PO PRN ×4 (08:55→23:42)
[2020-12-17] MEDS: ONDANSETRON 2MG/ML, 2ML IVPush PRN (09:24)
[2020-12-17 13:01] VITALS: BP 124/76
[2020-12-17] MEDS: ENOXAPARIN 40 MG/0.4 ML SQ SCH (17:01)
[2020-12-17 19:56] VITALS: BP 110/72
[2020-12-17] MEDS: LOVASTATIN 40 MG TABLET PO SCH (20:16)
[2020-12-17] MEDS: ALLOPURINOL 300 MG TABLET PO SCH (20:16)
[2020-12-17] MEDS: MELATONIN 5 MG TABLET PO PRN (23:42)
[2020-12-18 00:46] VITALS: BP 118/81
[2020-12-18] MEDS: AMPICILLIN/SULBACTAM 3 GM in SODIUM CHLORIDE 0.9% 100 ML IV SCH ×4 (05:21→23:20)
[2020-12-18] MEDS: LEVOTHYROXINE 200 MCG TABLET PO SCH (05:21)
[2020-12-18 06:18] LABS: BASOPHILS % (AUTO) 1 % (0-1); EOSINOPHILS % (AUTO) 7 % (1-7); HCT (SEDRATE) 31.6 % (34.6-47.8); LYMPHOCYTES % (AUTO) 33 % (22-44); MEAN CORPUSCULAR HEMOGLOBIN 23.3 pg (27.0-34.8); MEAN CORPUSCULAR HGB CONC 31.4 g/dL (32.4-35.8); MEAN PLATELET VOLUME 8.5 fL (7.4-10.4); MONOCYTES % (AUTO) 8 % (2-9); NEUTROPHILS % (AUTO) 51 % (42-75); PLATELET COUNT 449 x10^3/uL (130-400); RED BLOOD COUNT 4.14 x10^6/uL (3.82-5.3); RED CELL DISTRIBUTION WIDTH 21.8 % (9.6-15.2)
[2020-12-18 06:24] LABS: ANION GAP 3 mmol/L (5-15); C-REACTIVE PROTEIN, QUANT 0.28 mg/dL (0.02-0.49); CALCIUM 9.1 mg/dL (8.5-10.1); CHLORIDE 103 mmol/L (98-107); CREATININE 0.84 mg/dL (0.55-1.02)
[2020-12-18] MEDS: INSULIN LISPRO 100 UNITS/ML, PEN SQ-INSULIN SCH ×4 (07:06→20:17)
[2020-12-18 07:21] VITALS: BP 114/76
[2020-12-18] MEDS: SODIUM CHLORIDE FLUSH 10ML SYR IVF SCH ×2 (08:46→20:20)
[2020-12-18] MEDS: FUROSEMIDE 40 MG TABLET PO SCH (08:46)
[2020-12-18] MEDS: INSULIN GLARGINE 100 UNITS/ML, PEN SQ-INSULIN SCH ×2 (08:46→20:17)
[2020-12-18] MEDS: POTASSIUM CHLORIDE 20 MEQ TAB.ER.PRT PO SCH ×2 (08:46→20:17)
[2020-12-18] MEDS: OXYcodone IR 5MG TABLET PO PRN ×2 (09:44→17:33)
[2020-12-18] MEDS: ACETAMINOPHEN 500 MG TABLET PO PRN (12:50)
[2020-12-18 14:09] VITALS: BP 116/78
[2020-12-18] MEDS: ENOXAPARIN 40 MG/0.4 ML SQ SCH (16:46)
[2020-12-18 19:40] VITALS: BP 122/80
[2020-12-18] MEDS: ACETAMINOPHEN 325 MG TABLET PO PRN (20:17)
[2020-12-18] MEDS: ALLOPURINOL 300 MG TABLET PO SCH (20:17)
[2020-12-18] MEDS: LOVASTATIN 40 MG TABLET PO SCH (20:17)
[2020-12-19] MEDS: OXYcodone IR 5MG TABLET PO PRN ×3 (00:11→23:06)
[2020-12-19] MEDS: MELATONIN 5 MG TABLET PO PRN ×2 (00:11→23:45)
[2020-12-19 00:14] VITALS: BP 112/77
[2020-12-19] MEDS: AMPICILLIN/SULBACTAM 3 GM in SODIUM CHLORIDE 0.9% 100 ML IV SCH ×4 (05:39→23:06)
[2020-12-19] MEDS: LEVOTHYROXINE 200 MCG TABLET PO SCH (05:41)
[2020-12-19] MEDS: INSULIN LISPRO 100 UNITS/ML, PEN SQ-INSULIN SCH ×4 (07:00→20:15)
[2020-12-19 07:13] VITALS: BP 117/78
[2020-12-19] MEDS: SODIUM CHLORIDE FLUSH 10ML SYR IVF SCH ×2 (08:06→20:14)
[2020-12-19] MEDS: FUROSEMIDE 40 MG TABLET PO SCH (08:07)
[2020-12-19] MEDS: POTASSIUM CHLORIDE 20 MEQ TAB.ER.PRT PO SCH ×2 (08:07→20:16)
[2020-12-19] MEDS: INSULIN GLARGINE 100 UNITS/ML, PEN SQ-INSULIN SCH ×2 (08:08→20:16)
[2020-12-19] MEDS: ACETAMINOPHEN 500 MG TABLET PO PRN ×2 (12:30→20:16)
[2020-12-19 13:56] VITALS: BP 110/73
[2020-12-19] MEDS: ENOXAPARIN 40 MG/0.4 ML SQ SCH (16:43)
[2020-12-19] MEDS: ONDANSETRON 2MG/ML, 2ML IVPush PRN (17:28)
[2020-12-19 19:56] VITALS: BP 115/79
[2020-12-19] MEDS: ALLOPURINOL 300 MG TABLET PO SCH (20:16)
[2020-12-19] MEDS: LOVASTATIN 40 MG TABLET PO SCH (20:16)
[2020-12-20 00:45] VITALS: BP 128/82
[2020-12-20] MEDS: ACETAMINOPHEN 500 MG TABLET PO PRN ×3 (03:04→19:25)
[2020-12-20] MEDS: AMPICILLIN/SULBACTAM 3 GM in SODIUM CHLORIDE 0.9% 100 ML IV SCH ×4 (05:21→23:04)
[2020-12-20] MEDS: LEVOTHYROXINE 200 MCG TABLET PO SCH (05:22)
[2020-12-20 05:57] LABS: ALBUMIN 2.7 g/dL (3.4-5.0)
[2020-12-20 06:01] LABS: ALANINE AMINOTRANSFERASE 55 U/L (12-78); ALKALINE PHOSPHATASE 76 U/L (45-117); BILIRUBIN,TOTAL 0.2 mg/dL (0.2-1.0); C-REACTIVE PROTEIN, QUANT 0.22 mg/dL (0.02-0.49); CREATININE 0.76 mg/dL (0.55-1.02); HCT (SEDRATE) 29.6 % (34.6-47.8); TOTAL PROTEIN 6.1 g/dL (6.4-8.2)
[2020-12-20 06:09] LABS: ANION GAP 3 mmol/L (5-15); CHLORIDE 106 mmol/L (98-107)
[2020-12-20 06:11] LABS: BASOPHILS % (AUTO) 1 % (0-1); EOSINOPHILS % (AUTO) 7 % (1-7); LYMPHOCYTES % (AUTO) 36 % (22-44); MEAN CORPUSCULAR HEMOGLOBIN 23.1 pg (27.0-34.8); MEAN CORPUSCULAR HGB CONC 31.1 g/dL (32.4-35.8); MEAN PLATELET VOLUME 8.7 fL (7.4-10.4); MONOCYTES % (AUTO) 8 % (2-9); NEUTROPHILS % (AUTO) 48 % (42-75); PLATELET COUNT 389 x10^3/uL (130-400); RED BLOOD COUNT 4.01 x10^6/uL (3.82-5.3); RED CELL DISTRIBUTION WIDTH 21.3 % (9.6-15.2)
[2020-12-20 07:25] VITALS: BP 134/87
[2020-12-20] MEDS: POTASSIUM CHLORIDE 20 MEQ TAB.ER.PRT PO SCH ×2 (08:20→19:25)
[2020-12-20] MEDS: INSULIN LISPRO 100 UNITS/ML, PEN SQ-INSULIN SCH ×4 (08:20→21:14)
[2020-12-20] MEDS: FUROSEMIDE 40 MG TABLET PO SCH (08:21)
[2020-12-20] MEDS: SODIUM CHLORIDE FLUSH 10ML SYR IVF SCH ×2 (08:21→21:14)
[2020-12-20] MEDS: INSULIN GLARGINE 100 UNITS/ML, PEN SQ-INSULIN SCH ×2 (08:59→21:15)
[2020-12-20] MEDS: OXYcodone IR 5MG TABLET PO PRN ×3 (13:06→23:49)
[2020-12-20 13:11] VITALS: BP 125/66
[2020-12-20] MEDS: ENOXAPARIN 40 MG/0.4 ML SQ SCH (16:41)
[2020-12-20] MEDS: LOVASTATIN 40 MG TABLET PO SCH (19:25)
[2020-12-20] MEDS: ALLOPURINOL 300 MG TABLET PO SCH (19:25)
[2020-12-20 19:36] VITALS: BP 108/66
[2020-12-20] MEDS: MELATONIN 5 MG TABLET PO PRN (23:47)
[2020-12-21 00:32] VITALS: BP 116/78
[2020-12-21] MEDS: LEVOTHYROXINE 200 MCG TABLET PO SCH (05:05)
[2020-12-21] MEDS: AMPICILLIN/SULBACTAM 3 GM in SODIUM CHLORIDE 0.9% 100 ML IV SCH ×4 (05:05→23:14)
[2020-12-21] MEDS: OXYcodone IR 5MG TABLET PO PRN ×2 (05:49→13:25)
[2020-12-21 06:53] VITALS: BP 127/82
[2020-12-21] MEDS: INSULIN LISPRO 100 UNITS/ML, PEN SQ-INSULIN SCH ×4 (07:00→22:05)
[2020-12-21] MEDS: INSULIN GLARGINE 100 UNITS/ML, PEN SQ-INSULIN SCH ×2 (07:59→22:07)
[2020-12-21] MEDS: SODIUM CHLORIDE FLUSH 10ML SYR IVF SCH ×2 (08:00→21:00)
[2020-12-21] MEDS: FUROSEMIDE 40 MG TABLET PO SCH (08:00)
[2020-12-21] MEDS: POTASSIUM CHLORIDE 20 MEQ TAB.ER.PRT PO SCH ×2 (08:00→22:00)
[2020-12-21] MEDS: ACETAMINOPHEN 500 MG TABLET PO PRN ×2 (08:50→19:33)
[2020-12-21] MEDS: ONDANSETRON 2MG/ML, 2ML IVPush PRN (08:50)
[2020-12-21 12:28] VITALS: BP 110/96
[2020-12-21] MEDS: ENOXAPARIN 40 MG/0.4 ML SQ SCH (17:03)
[2020-12-21 18:51] VITALS: BP 122/76
[2020-12-21] MEDS: LOVASTATIN 40 MG TABLET PO SCH (22:00)
[2020-12-21] MEDS: ALLOPURINOL 300 MG TABLET PO SCH (22:01)
[2020-12-22 00:01] VITALS: BP 118/69
[2020-12-22] MEDS: OXYcodone IR 5MG TABLET PO PRN ×2 (00:12→10:14)
[2020-12-22] MEDS: MELATONIN 5 MG TABLET PO PRN (00:12)
[2020-12-22] MEDS: AMPICILLIN/SULBACTAM 3 GM in SODIUM CHLORIDE 0.9% 100 ML IV SCH ×2 (06:18→12:01)
[2020-12-22] MEDS: LEVOTHYROXINE 200 MCG TABLET PO SCH (06:18)
[2020-12-22 06:30] VITALS: BP 112/73
[2020-12-22] MEDS: INSULIN LISPRO 100 UNITS/ML, PEN SQ-INSULIN SCH ×3 (07:00→16:00)
[2020-12-22] MEDS: POTASSIUM CHLORIDE 20 MEQ TAB.ER.PRT PO SCH (08:33)
[2020-12-22] MEDS: INSULIN GLARGINE 100 UNITS/ML, PEN SQ-INSULIN SCH (08:34)
[2020-12-22] MEDS: FUROSEMIDE 40 MG TABLET PO SCH (08:34)
[2020-12-22] MEDS: ACETAMINOPHEN 500 MG TABLET PO PRN (08:34)
[2020-12-22] MEDS: SODIUM CHLORIDE FLUSH 10ML SYR IVF SCH (08:35)
[2020-12-22] MEDS: DIPHENHYDRAMINE 25 MG CAPSULE PO PRN ×2 (09:27→16:05)
[2020-12-22 12:37] VITALS: BP 130/83
[2020-12-22] MEDS ORDERED: OXYC5TAB98 PO ×2 (13:16)
[2020-12-22] MEDS ORDERED: FURO-93 PO (13:16)
[2020-12-22] MEDS ORDERED: POTA10TA17 PO (13:16)
[2020-12-22] MEDS ORDERED: ENOX40SY4 SQ (13:16)
[2020-12-22] MEDS ORDERED: FURO20TA3 PO (13:39)
== END 2020-12-22 17:21 | DRG 602 ==
LOC: ED 14:01 → EDIP 15:17 → 3N 15:39
PROVIDERS: ADMIT Hospitalist; ATTEND Internal Medicine
PROC: 0Y9C3ZZ Drainage of Right Upper Leg, Percutaneous Approach (ICD-10-PCS; principal; 2020-12-11 07:30)
DX: L03.115 Cellulitis of right lower limb (principal); E43 Unspecified severe protein-calorie malnutrition; L02.415 Cutaneous abscess of right lower limb; D64.9 Anemia, unspecified; L03.116 Cellulitis of left lower limb; Z20.822 Contact with and (suspected) exposure to COVID-19; E03.9 Hypothyroidism, unspecified; R91.1 Solitary pulmonary nodule; E11.22 Type 2 diabetes mellitus with diabetic chronic kidney disease; E11.40 Type 2 diabetes mellitus with diabetic neuropathy, unspecified; B95.61 Methicillin susceptible Staphylococcus aureus infection as the cause of diseases classified elsewhere; E66.9 Obesity, unspecified; E78.5 Hyperlipidemia, unspecified; I12.9 Hypertensive chronic kidney disease with stage 1 through stage 4 chronic kidney disease, or unspecified chronic kidney disease; M10.9 Gout, unspecified; N18.30 Chronic kidney disease, stage 3 unspecified; Z68.37 Body mass index [BMI] 37.0-37.9, adult; Z79.4 Long term (current) use of insulin; Z86.14 Personal history of Methicillin resistant Staphylococcus aureus infection; Z86.19 Personal history of other infectious and parasitic diseases; Z88.9 Allergy status to unspecified drugs, medicaments and biological substances; Z88.1 Allergy status to other antibiotic agents; Z88.8 Allergy status to other drugs, medicaments and biological substances; Z91.041 Radiographic dye allergy status; Z79.899 Other long term (current) drug therapy
CPT/HCPCS: 36415; 80048; 80053; 82040; 82962; 83605; 83735; 84145; 85025; 85651; 86140; 87015; 87040; 87070; 87075; 87102; 87116; 87205; 87206; 87635; 93970; 96374; 96375; G0378; J0295; J0690; J1100; J1650; J1940; J2405; J2704; J3010; A9575; J1815; J2270; J7120; Q0163